=== PATIENT | male | born 1960 | race Caucasian/White ===

== ENCOUNTER 2017-04-30 14:33 | Inpatient (IN) | payer OTHER ==
[~2017-04-30] VITALS: Ht 165.1 cm; Wt 91.2 kg
--- NOTE | ~2017-04-30 | WRIGHTHP ---
[place], [place] PATIENT HISTORY AND PHYSICAL EXAM NAME: [facility]ABA [id number] UN[facility] #: [id number] ROOM: 316 DOCTOR: JADE BETANCOURT MD BIRTHDATE: [birth year] DOS: 05/01/2017 CHIEF COMPLAINT: "Get out of here. I don't need to talk to you." HISTORY OF PRESENT ILLNESS: This is a 56-year-old white male who is known to me from his stay at [facility] in [place], [place]. The patient has a lengthy history of schizo-affective disorder and most recently had been stabilized on Aristada 882 mg every 42 days. However, over the last 6 months if not slightly longer, the patient has been noncompliant and his guardian has not allowed the alf to force medications. Over this period of time, he has become increasingly more delusional and paranoid. He has been barricading his door. He has not been allowing staff to come in. He has drawn a line on the floor where he states if anyone passes that line, he will inflict bodily harm on them. He has become verbally and physically aggressive, not only toward staff, but also to other residents. He has refused to eat any of the food that is cooked at the facility instead he will go out and bring food in and only eat prepackaged food or other foods because he is grossly psychotic and feels that the facility is poisoning his foods. His behavior has become so erratic and he has put both himself and others at risk for harm that he was admitted now to rule out organic factors and to attempt to re-stabilize on medication. PAST MEDICAL HISTORY: It is remarkable for diabetes, hypertension, GERD, obesity, peripheral vascular disease and hypothyroidism. MENTAL STATUS: He is alert and oriented. He is uncooperative and very belligerent. He initially did not want to talk to me, but as I persisted, he did engage in conversation with me. He flat-out refuses to take medications, stating he has no problems. He is rather grandiose at times and paranoid. There was no agitation directed towards me; however, there were no symptoms of depression noted. I was not able to engage him enough to have him cooperate with me to be able to ascertain his level of orientation, but he does appear to be alert and oriented x 3. DIAGNOSIS: Schizo-affective disorder. PLAN: At this point in time, because he is noncompliant with medication, I will force Haldol 5 mg in the morning and 10 mg at night. We will give him the option to take it orally. If he refuses, we will ask the guardian's permission to give him an intramuscular injection. After he tolerates the Haldol well, I will plan on Haldol Decanoate injection of 200 mg on 05/03/2017. We will engage him in individual and yates milieu the best we can, attempt to form a therapeutic alliance with him and then plan to discharge back to [facility] when psychiatrically stable. [place], [place] PATIENT HISTORY AND PHYSICAL EXAM NAME: CHARLA RUVALCABA UNIT #: [id number] ROOM: [facility] DOCTOR: JADE BETANCOURT MD BIRTHDATE: [birth year] JADE BETANCOURT MD CM:HISPHYS:PATIENT HISTORY AND PHYSICAL EXAMINATION 4 5 JADE BETANCOURT MD 05/01/17935 interface
--- NOTE | ~2017-04-30 | DS ---
[place], [place] DISCHARGE SUMMARY [id number] #: [id number] ROOM: 316 DOCTOR: ANN BROWN BIRTHDATE: [birth year] DOS: 05/02/2017 CHIEF COMPLAINT: "I have pain in both of my legs." HISTORY OF PRESENT ILLNESS: He is a 56-year-old male, who is a resident of [facility] in [place]. He has a history of schizoaffective disorder and the most recent medication that he was on was Aristada, which he was getting every 42 days. He has been noncompliant. He does have a court appointed guardian and his guardian was not allowing the halfway to give him his medications if he refuse. He became increasingly more delusional and paranoid without his medications. He was barricading his door at the facility, not allowing staff to come in. He had drawn a line on the floor and stated that if anyone crossed over the line that he would physically harm them. He was verbally and physically aggressive at the halfway towards both staff and other residents. He was not eating at the facility, was going out and bringing in food to the facility because he was paranoid and believed that people were poisoning his food. His behavior became more and more erratic and so he was sent into the hospital and admitted to the Behavioral Health Unit in order to rule out organic factors and attempt to adjust his medications and get him restabilized. PAST MEDICAL HISTORY: Significant for diabetes, hypertension, GERD, obesity, peripheral vascular disease and hypothyroidism. SUMMARY OF THE HOSPITAL COURSE: On admission, his medication was changed from Aristada to Haldol. He was started on Haldol 5 mg in the morning and 10 mg at night. The goal was to get him to the point where we could give him a long-acting decanoate preparation in order to improve his compliance with his medications. He did come in with some open areas on his bilateral lower extremities. He had ultrasound today and MRI, which showed that he had some nonocclusive DVT going on, as well as some cellulitis and he was transferred to the medical floor to get that medical condition stabilized. His urinalysis was also positive for UTI. Wound C and S was pending at the time that he was transferred to medical. He was tolerating the Haldol well and the first decanoate is due tomorrow, so we will hopefully continue those while he is on the floor. MENTAL STATUS AT DISCHARGE: He is alert, orientated, a little fixated on medical issues, but that is understandable, still complaining of bilateral leg pain and so those medical issues will be handled and then he can be transferred back to the Behavioral Health Unit if it is needed prior to returning to [facility] in [place]. He had originally been refusing to have an MRI or an ultrasound. He did consent to that this morning and those tests were done. DISPOSITION: He was transferred to the fourth floor, where they will help to stabilize him his medical conditions and if necessary, we will consider readmitting him to the Behavioral Health Unit if needed, also consult on the floor if that is needed. [place], [place] DISCHARGE SUMMARY NAME: CHARLA RUVALCABA UNIT #: [id number] ROOM: [facility] DOCTOR: ANN BROWN BIRTHDATE: [birth year] Ann Brown NP CM:DISCHARG [id number] ANN BROWN 05/03/17 0044 interface
--- NOTE | ~2017-04-30 | CON ---
[place], [place] REPORT OF CONSULTATION NAME: CHARLA RUVALCABA UNIT #: [id number] ROOM: 316 DOCTOR: TANIYA KU PRIYA BIRTHDATE: [birth year] DOS: 05/01/2017 HISTORY OF PRESENT ILLNESS: This is a 56-year-old male who stays states at [facility] in [place], [place]. He was admitted for noncompliance of his medications and has been admitted to the Behavioral Health Unit at [facility]. Podiatry was consulted to evaluate his lower extremities. He has a chronic nonhealing ulcer that is being treated at [facility] for quite some time. He does not know how long the ulcer has been there. He states he has dressing changes 3 times a week. He has been taking Bactrim DS for the past 2 weeks for his wound. He denies calf pain, chest pain, nausea, vomiting, fever or chills. He denies any pain to the left lower extremity. He has been receiving compression therapy for his lower extremities for quite some time. He has trouble with ambulation. PAST MEDICAL HISTORY: Diabetes, hypertension, GERD, obesity, peripheral vascular disease, hyperthyroidism and DVTs. PAST SURGICAL HISTORY: Denies. SOCIAL HISTORY: Denies alcohol use. Illicit drug user. Denies tobacco use. ALLERGIES: ACETAMINOPHEN AND INSULIN. MEDICATIONS: Please see MAR for current list of medications. REVIEW OF SYSTEMS: GENERAL: Denies fevers, chills, nausea, vomiting. Alert and oriented, in no acute distress. HEENT: Denies vision changes, denies hearing loss, nasal discharge, throat swelling, dysphagia. CARDIOVASCULAR: Denies chest pain or heart palpitations. RESPIRATORY: Denies shortness of breath, cough, wheezing. ABDOMINAL: Denies abdominal pain, nausea, vomiting. GENITOURINARY: Denies dysuria or hematuria. NEUROLOGICAL: Has decreased sensation to bilateral lower extremities. PSYCHIATRIC: Denies depression and anxiety. ENDOCRINE: Admits to diabetes. SKIN: Admits to nonhealing lower extremity wound to the left lower extremity. PHYSICAL EXAMINATION: VITAL SIGNS: Temperature 97.4, pulse 80, blood pressure 126/58, respiratory rate 16. FOCUSED PODIATRIC LOWER EXTREMITY EXAMINATION: VASCULAR: DP pulses are palpable bilateral. PT pulses are nonpalpable secondary to extensive edema noted in bilateral lower extremities. CFT is less than 3 seconds to digits 1 through 5 bilateral. No hair is present to bilateral lower extremities. There are chronic venous stasis changes noted to bilateral lower extremities. NEUROLOGIC: Protective sensation is decreased to bilateral lower extremities. [place], [place] REPORT OF CONSULTATION NAME: CHARLA RUVALCABA UNIT #: [id number] ROOM: 316 DOCTOR: TANIYA KU PRIYA BIRTHDATE: [birth year] Decreased sensation noted with [place] monofilament to bilateral lower extremities. There is decreased muscle tone and symmetry noted to bilateral lower extremities. MUSCULOSKELETAL: 4/5 muscle strength noted at bilateral lower extremities. There is decreased range of motion of the ankle joint, subtalar joint and first MTPJ. There is equinus deformity noted bilateral lower extremities. Homans sign is negative. DERMATOLOGIC: There is an 8 x 6 x 0.2 cm wound noted on the posterior aspect of the left lower extremity. There are multiple stable eschars noted to his right and left lower extremities as well. The wound is full thickness down to fascia. It is 50% fibrotic and 50% granular. It does not track or undermine. There is a mild fruity odor noted to the wound. There is no purulent drainage noted. Serous drainage is noted to the bandages. No acute signs of infection noted at this time. LABORATORY DATA: White count 7.7, hemoglobin 12.7, hematocrit 39.6, platelets 415. ASSESSMENT: 1. Full thickness ulceration to the posterior aspect of the left lower extremity with localized cellulitis. 2. Venous insufficiency, bilateral lower extremities. 3. Stasis dermatitis, bilateral lower extremities. 4. Diabetes mellitus with peripheral neuropathy. 5. Diabetes with atherosclerotic changes. PLAN: 1. The patient is seen and examined. 2. Sharp excisional debridement down to fascia was performed with a #11 blade down to healthy bleeding tissue. 3. Wound cultures are obtained. 4. The patient is currently on doxycycline. We will continue that until wound cultures are completed. 5. Ordered arterial and venous studies to rule out DVT and evaluate appropriate blood flow to help heal the wound. 6. Ordered MRI to rule out osteomyelitis of the left lower extremity. 7. Ordered a wound VAC to be applied to the posterior aspect of the left lower extremity to hatchery helper in granulation tissue. 8. We will continue to follow on the floor. 9. Discussed with Dr. Higginbotham, who agrees with above assessment and plan. Thank you for the consultation. Please feel free to call me at my cell phone, which is [phone] for any questions. [place], [place] REPORT OF CONSULTATION NAME: HCARLA RUVALCABA UNIT #: [id number] ROOM: [facility] DOCTOR: TANIYA KU PRIYA BIRTHDATE: [birth year] MOI KU DPM CM:CONSTR:REPORT OF CONSULTATION 05/03/17 0817 interface
[~2017-04-30 14:33] MED LIST: BACTRIM 400-801 EACH PO
[2017-04-30] MEDS ORDERED: DULCOLAX10 M1 R (14:40)
[2017-04-30] MEDS ORDERED: FLEET ENEMA EX230 M1 R (14:42)
[2017-04-30] MEDS ORDERED: MILK OF MA400 MG/5 M PO (14:42)
[2017-04-30] MEDS ORDERED: TUMS300 MG PO (14:44)
[2017-04-30] MEDS ORDERED: ADVIL200 M1 PO (14:46)
[2017-04-30] MEDS ORDERED: ASPIR LOW81 MG PO (14:50)
[2017-04-30] MEDS ORDERED: CEPACOL SORE T1 EAC1 MM (14:51)
[2017-04-30] MEDS ORDERED: BENADRYL ALLERG25 M5 PO (14:51)
[2017-04-30] MEDS ORDERED: FEROSUL325 MG PO (14:52)
[2017-04-30] MEDS ORDERED: FLONASE ALLERG9.9 ML NAS (14:53)
[2017-04-30] MEDS ORDERED: GLUCAGON EMERGEN1 M1 IJ (14:54)
[2017-04-30] MEDS ORDERED: IMODIUM A-D2 M2 PO (14:56)
[2017-04-30] MEDS ORDERED: HALLS7.6 MG MM (14:56)
[2017-04-30] MEDS ORDERED: LASIX40 MG PO ×2 (14:58→15:47)
[2017-04-30] MEDS ORDERED: MAALOX MAXIMUM355 ML PO (14:59)
[2017-04-30] MEDS ORDERED: ADULTS 50+ MUL1 EACH PO (15:01)
[2017-04-30] MEDS ORDERED: OMEPRAZOLE D/R20 MG PO (15:02)
[2017-04-30] MEDS ORDERED: Synthroid,Levo50 MCG PO (15:03)
[2017-04-30] MEDS ORDERED: TRAMADOL HCL50 MG PO (15:04)
[2017-04-30 18:20] VITALS: BP 154/63
[2017-04-30 18:33] VITALS: BP 154/63
[2017-04-30] MEDS ORDERED: LANTUS SOL100 UNIT/1 SQ (19:26)
[2017-04-30] MEDS ORDERED: NOVOLOG10 ML SQ (19:27)
--- NOTE | 2017-04-30 19:30 | NUR ---
CHARLA RUVALCABA a 56 year old M admitted via wheel chair from the ADMITTING as a voluntary admission BY LEGAL GUARDIAN. Arrived on unit at 181. ALLERGIES: TYLENOL, HUMULIN R. Vital signs are: [phone]/63. The client signed the following forms with stated understanding: Authorization For The Release of Medical Information, Clothing List, Consent to Voluntary BY LEGAL GUARDIAN Admission and Hospitalization, Consent and Release Forms/Receipt of Rights, Acknowledgement of Advance Directive Information, Behavioral Health Consent Form, and Informed Consent of Medications. Admitted under the services of Dr. SERAFIN REYNOSO,[facility]. A search was conducted and hazardous articles were removed. Client was oriented to the unit. NESHA ARAMBULA
--- NOTE | 2017-04-30 19:33 | NUR ---
DR. BANSAL NOTIFIED OF NEW ADMISSION, MEDICATION AND HEALTH HISTORY IN COMPUTER FOR REVEIW.
[2017-04-30 20:00] VITALS: BP 137/52
--- NOTE | 2017-04-30 20:45 | NUR ---
PATIENT REFUSED TO LET THIS NURSE ASSESS AND PHOTOGRAPH WOUNDS TO BILATERAL LOWER EXTREMITIES. PATIENT REQUESTED THAT HOSPITAL WOUND CARE LOOK AT HIS LEGS T[place]OW. PATIENT DID NOT WANT TO HAVE EXTRA DRESSING CHANGES AT THIS TIME. THIS NURSE PUT IN ORDER TO CONSULT WOUND CARE AND ATTEMPTED TO CALL WOUND CARE AND REACH DR. JACY GLASER. MESSAGE LEFT TO CALL UNIT REGARDING PATIENTS WOUNDS
--- NOTE | 2017-04-30 20:47 | NUR ---
NURSING APRON OPERATOR AWARE OF WOUNDS AND AWARE THAT THIS NURSE UNABLE TO OBTAIN PHOTOGRAPHS AND ORDER PUT IN FOR WOUND CONSULT
--- NOTE | 2017-04-30 22:06 | NUR ---
PATIENT REFUSED RISPERDAL 1MG PO AT HS. PATIENT STATING HE IS NOT TAKING ANY MEDICATIONS THAT HE NORMALLY DOES NOT TAKE
--- NOTE | 2017-04-30 22:25 | NUR ---
PATIENT UPSET AND REQUEST BLOOD SUGAR TO BE CHECKED. PATIENT STATED I DID NOT EAT LUNCH OR BREAKFAST, BUT I HAD MY SNACK. PATIENT ALSO TOLD THIS NURSE THAT HIS BLOOD SUGAR RAN HIGH AT TIMES. THIS NURSE CHECKED PATIENT'S BLOOD SUGAR WITH RESULTS OF 414. THIS NURSE TOLD PATIENT THAT THE DOCTOR WOULD BE CALLED. PATIENT STATED ALRIGHT, BUT I DON'T LIKE TAKING THINGS DIFFERENTLY THAN I ALREADY TAKE. THIS NURSE EXPLAINED TO PATIENT THAT HE WILL BE ABLE TO SEE WOUND CARE IN THE MORNING, A DOCTOR FROM THE HOSPITAL WILL BE TO SEE HIM TONIGHT, AND THAT DR. BETANCOURT WILL ALSO BE ABLE TO SEE HIM IN THE MORNING. PATIENT VERY UPSET AND STATED THAT "IF THAT IS THE DR. BETANCOURT THAT CAME TO SEE ME AT [facility] THEN I DON'T WANT TO SEE HIM OR ANY OF HIS COLLEAUGES". PATIENT THEN STATED THAT IT HAD NOTHING TO DO WITH ANY OF HIS COLLEAGES BEING BLACK, BUT IF I AM HAVING A CONVERSATION WITH GOD THEN I SHOULD BE ALBLE TO. THAT DR. BETANCOURT HAD NO RIGHT TO SAY I COULD NOT TALK TO GOD. IF THAT IS THE SAME DR. BETANCOURT, I DO NOT WANT HIM AND I NEED ANOTHER DOCTOR
--- NOTE | 2017-04-30 22:35 | NUR ---
DR. OREILLY UPDATED ABOUT PATIENT'S BLOOD SUGAR RESULT OF 414. DR. OREILLY AWARE THAT PATIENT RECEIVES NOVOLOG 10 UNITS TID AND LANTUS [address] OREILLY WITH ORDER TO GIVE NOVOLOG 10 UNITS X 1 FOR DOSE THAT WAS NOT RECEIVED WITH DINNER. DR. OREILLY WITH ORDER TO PUT PATIENT UNDER DR. TEMPLE AT THIS TIME
--- NOTE | 2017-04-30 22:45 | NUR ---
NOVOLOG 10 UNITS SUBCUTANEOUS INJECTION GIVEN IN PATIENTS RIGHT OUTER THIGH PER PATIENT REQUEST
--- NOTE | 2017-05-01 03:23 | NUR ---
24 HR chart check completed.
--- NOTE | 2017-05-01 05:02 | NUR ---
THIS NURSE WENT IN TO CHECK ON PATIENT. PATIENT WAS SITTING IN CHAIR IN FRONT OF DOOR. PATIENT STATED HE WAS JUST GETTING DRESSED. THIS NURSE RECHECKED HIS BLOOD SUGAR WITH RESULTS OF 263. PATIENT UNABLE TO PROVIDE URINE SAMPLE AT THIS TIME AND WILL LET NURSING STAFF WHEN HE HAS TO GO TO SEND URINE SPECIMEN. PATIENT PROVIDED BLANKETS DUE TO COMPLAINT OF BEING COLD.
--- NOTE | 2017-05-01 05:43 | NUR ---
B: PARANOIA I: THERAPEUTIC COMMUNICATION, 1:1 R: I AM NOT TAKING ANY MEDICATIONS THAT I AM NOT USED TO TAKING. THEY ARE NOT GOING TO JUST GIVE ME MEDICATIONS I DON'T NEED JUST BECAUSE THEY THINK I NEED IT. P: MEDICATION COMPLIANCE, PARTICIPATE IN GROUP, IDENTIFY COPING SKILLS RELATED TO PARANOIA
--- NOTE | 2017-05-01 06:04 | NUR ---
Q 15 MINUTE CHECKS MAINTAINED. PATIENT SLEPT > 6 HOURS THROUGHOUT SHIFT
[2017-05-01 07:26] LABS: BASO # 0.1 10*3/uL (0.0-0.1); BASO % 0.9 % (0.0-1.0); EOS # 0.5 10*3/uL (0.0-0.4); EOS % 6.5 % (1.0-4.0); HEMATOCRIT 39.6 % (42.0-52.0); HEMOGLOBIN 12.7 g/dl (14.0-18.0); LYMPH # 1.3 10*3/uL (1.3-4.4); LYMPH % 16.7 % (27.0-41.0); MEAN CELL VOLUME 86.1 fl (80.0-94.0); MEAN CORPUSCULAR HGB 27.6 pg (27.0-31.0); MEAN CORPUSCULAR HGB CONC 32.1 g/dl (33.0-37.0); MEAN PLATELET VOLUME 12.1 fl (9.6-12.3); MONO # 0.9 10*3/uL (0.1-1.0); MONO % 12.2 % (3.0-9.0); NEUT # 4.8 10*3/uL (2.3-7.9); NEUT % 62.5 % (47.0-73.0); PLATELET COUNT AUTOMATED 415 10*3/uL (130-400); RED CELL DISTRI WIDTH 14.6 % (0-14.5); WHITE BLOOD COUNT 7.7 10*3/uL (4.8-10.8)
[2017-05-01 07:59] LABS: ALBUMIN 3.2 gm/dl (3.1-4.5); BUN 15 mg/dl (7-24); CHLORIDE 100 mmol/L (98-107); CHOLESTEROL 166 mg/dL (<200); POTASSIUM 4.2 mmol/L (3.5-5.1); SODIUM 134 mmol/L (136-145)
--- NOTE | 2017-05-01 08:00 | NUR ---
DR. OREILLY HERE TO SEE PT AT THIS TIME. 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 MADE AWARE PT REQUESTS ASPIRIN TO BE CHANGED FROM 81MG TO 325MG DAILY. DR. OREILLY STATES OKAY TO CHANGE ASPIRIN. PT REFUSED BREAKFAST AND AM INSULIN, DR. OREILLY AWARE, PT ONLY REQUESTS COFFEE. URINE SAMPLE OBTAINED AT THIS TIME FOR UA VIA CLEAN CATCH.
[2017-05-01 08:11] LABS: ALKALINE PHOSPHATASE 97 U/L (45-117); CREATININE 1.45 mg/dL (0.70-1.30); HDL CHOLESTEROL 40 mg/dl (40-60); LDL CHOLESTEROL 108 mg/dL (9-159); SGOT/AST 10 IU/L (3-35); SGPT/ALT 12 U/L (12-78); TOTAL PROTEIN 8.5 gm/dL (6.4-8.2); TRIGLYCERIDES 90 mg/dl (<150); VLDL CHOLESTEROL 18 mg/dL (6-40)
[2017-05-01 08:23] LABS: VITAMIN D, 25-HYDROXY 25.4 ng/mL (30-100)
[2017-05-01 08:38] VITALS: BP 139/65
[2017-05-01 09:05] LABS: BILIRUBIN NEGATIVE (NEGATIVE); BLOOD 2+ (NEGATIVE); CLARITY SL CLOUDY (CLEAR); COLOR YELLOW (YELLOW); GLUCOSE 3+ (NEGATIVE); KETONE NEGATIVE (NEGATIVE); LEUKO ESTERASE 3+ (NEGATIVE); NITRITE POSITIVE (NEGATIVE); PH 5.5 (5.0-9.0); SPECIFIC GRAVITY <= 1.005 (1.005-1.030); UROBILINOGEN 0.2 E.U./dl (0.2-1.0)
--- NOTE | 2017-05-01 09:05 | NUR ---
CALLED RE:WOUND CARE CONSULT FOR THIS PT. STATED "I DO NOT WANT TO SEE THIS PT B/C TOMORROW IS MY LAST DAY AT THIS HOSPITAL AND I DO NOT WANT TO SEE A PT THAT I CANNOT FOLLOW UP ON, PLEASE HAVE CANCEL THE ORDER FOR MY CONSULT AND HAVE PODITRY SEE THIS PT." NO FURTHER ORDERS AT THIS TIME.
--- NOTE | 2017-05-01 09:09 | NUR ---
DR. BEDOYA'S OFFICE NOTIFIED OF WOUND CONSULT NEEDED.
--- NOTE | 2017-05-01 09:21 | NUR ---
FALL AND SAFETY PRECAUTIONS REVIEWED WITH PT. PT SITTING IN CHAIR IN ROOM WITH WALKER NEXT TO PT. PORTABLE CALL RODRIGUEZ PROVIDED TO PT, ENCOURAGED TO USE RODRIGUEZ FOR ASSISTANCE OUT OF CHAIR AND TO/FROM BATHROOM. PT VERBALIZED UNDERSTANDING.
[2017-05-01 09:29] LABS: BACTERIA 3+; RBC 21-30 rbc/hpf (0-2); WBC TNTC wbc/hpf (0-5)
--- NOTE | 2017-05-01 11:28 | NUR ---
Reminiscing/Feelings Patient did not attend group this morning. Patient was encouraged to join but patient nicolasasherly refused,stating the only group he would join is a BINGO group. AT offered to come back at some point and 1:1 with patient playing cards or just talking. Patient stated again only BINGO.
--- NOTE | 2017-05-01 11:35 | NUR ---
CALL PLACED TO COMMUNICATIONS CONTROLLER HILL'S OFFICE TO SPEAK TO GUARDIAN IN REGARD TO MEDICATIONS PER THE REQUEST OF DR. BETANCOURT, NO ANSWER, MESSAGE LEFT REQUESTING COMMUNICATIONS CONTROLLERBYRON COX RETURN CALL TO THE UNIT.
--- NOTE | 2017-05-01 12:13 | NUR ---
DR. ROLON ON UNIT AT THIS TIME, ASSESSED PT, MADE AWARE OF ABNORMAL LABS AND ABNORMAL URINALYSIS RESULT.
--- NOTE | 2017-05-01 16:24 | NUR ---
CALL PLACED BY MARCIA CRISTOBAL TO DIRECTOR MARKETING ANALYTICSBYRON COX'S HOME PHONE, ATTEMPTING TO REACH GUARDIAN IN REGARD TO MEDICATIONS PER THE REQUEST OF DR. BETANCOURT, MESSAGE LEFT REQUESTING DIRECTOR MARKETING ANALYTICSBYRON COX RETURN CALL TO THE UNIT.
--- NOTE | 2017-05-01 17:14 | NUR ---
PT IS ALERT AND ORIENTED TO PERSON, PLACE, TIME AND SITUATION. MEMORY APPEARS INTACT. RESPIRATIONS EASY ON ROOM AIR. MOOD IS LABILE, AFFECT IS FLAT. SPEECH IS WNL AND COHERENT. ABLE TO MAKE NEEDS KNOWN WITHOUT DIFFICULTY. PT DENIES HALLUCINATIONS, NO RESPONSE TO INTERNAL STIMULI NOTED. PT DENIES SI/HI. MEDICATION COMPLIANT THIS SHIFT WITHOUT DIFFICULTY. EDUCATED THIS AM REGARDING HALDOL, PT TOOK PO HALDOL WILLINGLY. PT IS AMBULATORY WITH WHEELED WALKER, GIVEN PORTABLE CALL RODRIGUEZ TO ASK FOR ASSISTANCE NEEDED, PT VERBALIZED UNDERSTANDING. PT STARTED ON DOXYCYCLINE PO FOR UTI, PT EDUCATED ON MEDICATION WITH PT'S VERBALIZED UNDERSTANDING. CONTACT ISOLATION MAINTAINED DUE TO RECENT HX OF +MRSA TO RLE WOUND. PT HAS NOT ALLOWED THIS NURSE TO TOUCH LEG WOUNDS THIS SHIFT OR UNWRAP LEGS PT STATES "I WANT THE WOUND DOCTOR TO SEE IT FIRST." THIS NURSE AWAITING LCAC RADAR OPERATOR/NAVIGATOR TO COME AND ASSESS WOUNDS, CALL WAS RECIEVED THIS DATE FROM DR. BEDOYA'S OFFICE STATING THEY WILL BE HERE 'THIS EVENING.' PT AWARE. PT EASILY AGITATED AT DINNER TIME DUE TO SALT AND PEPPER PACKETS BEING ON TRAY STATES "IF THESE PEOPLE CAN'T LEARN TO LISTEN TO ME, I'LL JUST THROW THIS STUFF ON THE FLOOR. I'M NOT DOING THIS TOMORROW." PT SITTING IN ROOM EATING DINNER AT THIS TIME, NO DISTRESS NOTED. Q15 MIN SAFETY CHECKS MAINTAINED, REFER TO [facility] FLOWSHEET FOR SPECIFIC MONITORING.
--- NOTE | 2017-05-01 17:36 | NUR ---
SHIFT CHART CHECK COMPLETED.
[2017-05-01 20:01] VITALS: BP 126/58
--- NOTE | 2017-05-02 06:53 | NUR ---
24 HR chart check completed.
--- NOTE | 2017-05-02 07:59 | NUR ---
Feelings:Dealing with negative feelings. Patient did not attend group due to isolation. AT talked to patient about his interest, offering to discuss group with patient in room. Patient stated hes only interested in BINGO. AT questioned patient on other interest such as reading,puzzles,etc.. Patient stated he likes word searches but refuses sheets of them will only accept books of those puzzles. Explained to patient we only have sheets and to let staff know if he changes his mind. Patient demanding,complaining staff are too slow taking care of his needs. Also complains of not having items he wants such as a mirror for his room. Patient educated on policies on this floor then redirected to his interest. Patient then stated whe would take sheets of word search but wants no other interaction with an activity
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
[2017-05-02 09:15] VITALS: BP 126/66
--- NOTE | 2017-05-02 11:27 | NUR ---
RECIEVED CALL FROM [facility] IN [place] STATING WITHOUT FURTHER INFORMATION REGARDING TYPE OF STENT PLACED IN PT'S LEG THEY WOULD BE UNABLE TO PERFORM MRI. PT UNABLE TO RECALL WHICH DOCTOR PLACED FILTER BUT STATES IT WAS DONE AT [facility] IN 2009. CALL PLACED TO [facility], OPERATIVE REPORT OBTAINED FROM PLACEMENT OF IVC FILTER DONE ON 10/06/2009. REPORT FAXED TO [facility] IN [place] FOR REVIEW. RECIEVED CALL FROM MRI WHO STATES AFTER REVIEWING THE TYPE OF IVC FILTER PLACED PT IS SAFE FOR MRI AND STATES THEY WILL SEND ESCORT FOR PT SHORTLY.
--- NOTE | 2017-05-02 12:30 | NUR ---
Was up on floor to see patient and patient was off the floor getting testing. This nurse instructed the nurse caring for patient that wound care orders need clarified with podiatry after the tests results came back. This nurse also informed the nursing staff that photographs need taken of the wound since there was only on photographed area last night.
--- NOTE | 2017-05-02 13:03 | NUR ---
Reminiscing Patient did not attend group this morning due to being in isolation. Patient wants no 1:1. Patient finished all word searches from yesterday so AT gave him more to do
--- NOTE | 2017-05-02 13:10 | NUR ---
PT RETURNED FROM MRI WITHOUT INCIDENT.
--- NOTE | 2017-05-02 13:40 | NUR ---
RECIEVED CALL FROM JOHN RAIN CNP STATING PT IS TO BE DISCHARGED FROM [facility] AND ADMITTED TO MEDICAL FLOOR UNDER THE SERVICES OF DR. BISWAS WITH DX CELLULITIS AND UNCONTROLLED DIABETES. NURSING EXTERNAL GRINDER MADE AWARE, PT WILL GO TO PRIVATE ROOM 428. CALL PLACED TO DR. BETANCOURT TO MAKE AWARE. CALL PLACED TO LEGAL GUARDIAN TYPECASTING MACHINE OPERATOR KENNY TO MAKE AWARE, NO ANSWER, MESSAGE LEFT FOR TYPECASTING MACHINE OPERATOR KENNY TO PLEASE RETURN CALL TO THE UNIT. PT MADE AWARE OF TRANSFER AND VERBALIZED UNDERSTANDING.
--- NOTE | 2017-05-02 14:05 | NUR ---
CALL PLACED TO 4TH FLOOR TO GIVE NURSE TO NURSE REPORT, STATED NO NURSE HAS BEEN ASSIGNED YET, WILL CALL BACK FOR REPORT ONCE ASSIGNMENT IS MADE.
--- NOTE | 2017-05-02 14:27 | NUR ---
CALL PLACED TO JOHN RAIN CNP DUE TO DISCHARGE MEDS NOT COMPLETED, MEDS REVIEWED AND COMPLETED VIA TELEPHONE WITH ALEX COCHRAN AT THIS TIME.
[2017-05-02] MEDS ORDERED: HALDOL5 MG PO ×2 (14:32→14:33)
[2017-05-02] MEDS ORDERED: HALDOL5 MG/1 ML IM ×3 (14:33→14:36)
[2017-05-02] MEDS ORDERED: HALDOL DEC100 MG/1 M IM (14:35)
[2017-05-02] MEDS ORDERED: ATIVAN1 MG PO (14:37)
[2017-05-02] MEDS ORDERED: ATIVAN IM (14:37)
[2017-05-02] MEDS ORDERED: GEODON20 M1 IM (14:38)
[2017-05-02] MEDS ORDERED: DOXYCYCLINE100 M3 PO (14:39)
--- NOTE | 2017-05-02 14:40 | NUR ---
DISCHARGE MED REC UPDATED WITH PSYCHIATRIC MEDICATIONS PER DR. BETANCOURT. WITNESSED BY 2ND RN TOM.
--- NOTE | 2017-05-02 14:56 | NUR ---
SW completed psychosocial assessment. Pt is going to the medical floor for treatment of celluitis. SW completed Discharge paperwok and will fax to guardian for signature.
--- NOTE | 2017-05-02 15:00 | NUR ---
RECIEVED RETURN CALL BACK FROM LEGAL GUARDIAN CLERICAL WAREHOUSEMAN KENNY'S OFFICE, MADE AWARE OF DISCHARGE TO MEDICAL FLOOR.
--- NOTE | 2017-05-02 15:03 | NUR ---
DISCHARGE WOUND PHOTOS TAKEN AT THIS TIME
--- NOTE | 2017-05-02 15:11 | NUR ---
NURSE TO NURSE REPORT GIVEN TO YASSINE ON 4TH FLOOR.
--- NOTE | 2017-05-02 15:18 | NUR ---
PT DISCHARGED FROM [facility] TO [facility] 4TH FLOOR ROOM 420 AT THIS TIME VIA WHEELCHAIR ESCORT BY THIS NURSE AND MACARENA BRICEÑO. ALL PERSONAL BELONGINGS WERE SENT WITH THE PT. DISCHARGE INSTRUCTIONS PROVIDED TO YASSINE NURSE ON 4TH FLOOR AND WILL BE SENT TO LEGAL GUARDIAN. PT LEFT THE UNIT IN STABLE CONDITION.
--- NOTE | 2017-05-02 16:22 | NUR ---
Customer Support Technician Note: faxed 30 pages for signatures to Rhonda Palmer.
--- NOTE | 2017-05-02 17:17 | NUR ---
RUPERT PACHECO NOTIFIED SW THAT SIGNATURE PAGES WERE RECEIVED FROM GUARDIAN.
[2017-05-02] MEDS ORDERED: NOVOLOG10 ML IV (17:59)
== END 2017-05-02 13:52 | disposition short-term general hospital (02) | DRG 885 ==
LOC: 3N 14:33
PROVIDERS: ADMIT Psychiatry & Neurology Psychiatry
DX: F25.9 Schizoaffective disorder, unspecified (principal); E11.51 Type 2 diabetes mellitus with diabetic peripheral angiopathy without gangrene; I82.411 Acute embolism and thrombosis of right femoral vein; E11.65 Type 2 diabetes mellitus with hyperglycemia; L03.90 Cellulitis, unspecified; N39.0 Urinary tract infection, site not specified; K21.9 Gastro-esophageal reflux disease without esophagitis; I10 Essential (primary) hypertension; E03.9 Hypothyroidism, unspecified; I87.8 Other specified disorders of veins; E66.09 Other obesity due to excess calories; R82.71 Bacteriuria; Z88.8 Allergy status to other drugs, medicaments and biological substances; Z88.6 Allergy status to analgesic agent; Z80.7 Family history of other malignant neoplasms of lymphoid, hematopoietic and related tissues; Z79.4 Long term (current) use of insulin; Z79.899 Other long term (current) drug therapy; S91.309D Unspecified open wound, unspecified foot, subsequent encounter; Z91.14 Patient's other noncompliance with medication regimen; Z68.31 Body mass index [BMI] 31.0-31.9, adult

== ENCOUNTER 2017-05-02 13:56 | Inpatient (IN) | payer OTHER ==
[~2017-05-02] VITALS: Ht 167.6 cm; Wt 89.0 kg
--- NOTE | ~2017-05-02 | CON ---
[place], [place] REPORT OF CONSULTATION NAME: CHARLA RUVALCABA UNIT #: [id number] ROOM: 420 DOCTOR: JADE BETANCOURT MD BIRTHDATE: [birth year] DOS: 05/03/2017 CHIEF COMPLAINT: "What are you doing here?" HISTORY OF PRESENT ILLNESS: This is a 56-year-old white male known to me from his stay at [facility] a penit[facility] in [place] as well as a recent admission to the [facility] at [facility]. The patient had been stabilized on Aristada 882 mg every 42 days but over the last 6 months, has been totally noncompliant with the medication. During this period of time, his psychosis has returned and has exacerbated extremely to the point where he has barricaded himself in his room. He would not let anyone in without making threats of harm. He has raised his fist and he has pushed people. He will not eat any of the food from the facility, instead he prefers to go out, buy food and bring it in. He will not necessarily refrigerate it. He has become increasingly paranoid and aggressive. He has been noncompliant with all aspects of his care. He was initially admitted to the [facility] but upon admission there, he was found to have a DVT and a very severe wound that required transfer to a medical floor. PAST MEDICAL HISTORY: Remarkable for diabetes, hypertension, GERD, obesity, peripheral vascular disease, and hypothyroidism. MENTAL STATUS: He is alert and oriented. Mood does seem to be rather labile. He is still paranoid and delusional. Memory seems intact. DIAGNOSIS: Schizoaffective disorder. PLAN: I will restart his Haldol 5 mg in the morning and 10 mg at night. He is to be loaded with Haldol decanoate 200 mg IM today. I will hold off on ordering a monthly Haldol shot as he may require an additional 100 mg booster bringing him to a total of 300 mg IM every month. We will support and monitor. Given the severity of his mental health issues, once he is medically stable, I would be happy to take him back to the [facility] for further psychiatric stabilization. JADE BETANCOURT MD CM:CONSTR:REPORT OF CONSULTATION 0851 05/03/17 1304 interface
--- NOTE | ~2017-05-02 | PR ---
[place], [place] PROGRESS NOTE NAME: [id number] UN[facility] #: [id number] ROOM: 420 DOCTOR: DARLINE BEDOYA DPM BIRTHDATE: [birth year] DOS: 05/04/2017 SUBJECTIVE: The patient was seen for followup of ulceration, posterior left calf and ulceration anterior right lower leg, anterior aspect. OBJECTIVE: Venous insufficiency, bilateral lower leg noted. Ulceration posterior left calf is approximately 7.9 x 5.0 x 0.1 cm. There is no further drainage. There is no further slough or nonviable tissue. The ulceration is doing well at this time. No signs of drainage or maceration. Anterior right lower leg ulceration also improving at this time. ASSESSMENT: Venous ulceration posterior aspect of left leg. PLAN: Evaluation and management. Continue dressing changes daily both legs. We will monitor the patient again on Saturday. The patient also had a nonocclusive DVT in the right common femoral and proximal superficial femoral veins and superficial thrombophlebitis within the bilateral greater saphenous veins and the patient is currently being treated with heparin. The patient is also being treated with antibiotics for the infection. DARLINE BEDOYA DPM CM:DARIAN [id number] DARLINE BEDOYA DPM 05/04/17 1149 interface
--- NOTE | ~2017-05-02 | CON ---
[place], [place] REPORT OF CONSULTATION NAME: CHARLA RUVALCABA UNIT #: [id number] ROOM: 420 DOCTOR: JESSICA COCHRAN,NOVEMBER BIRTHDATE: [birth year] DOS: HISTORY OF PRESENT ILLNESS: The patient is a 56-year-old male who was admitted from the [facility] Unit for infection of the left lower extremity posterior calf wound. He developed foul odor as well as bilateral lower extremity swelling and erythema. He had an MRI done to evaluate for possible osteo that was negative for osteomyelitis or abscess. He also had an ultrasound which demonstrated a right lower extremity nonocclusive DVT. He was started on vancomycin and Zosyn. He was admitted to [facility] from [facility]. ID is consulted for bilateral lower extremity cellulitis. Cultures from the left leg are listed under outpatient from are growing gram-negative rods. His blood cultures are negative thus far. He denies any fevers or chills. States he has had his circulation evaluated recently at [facility]. PAST MEDICAL HISTORY: As above as well as juvenile-onset diabetes, DVT, hypertension, GERD, obesity, peripheral vascular disease, schizoaffective disease, hypothyroidism. PAST SURGICAL HISTORY: Appendectomy, wrist surgery. SOCIAL HISTORY: Nonsmoker, nondrinker, no illicit drug use. He has been in a alf for some time now. FAMILY MEDICAL HISTORY: Father healthy. Mother at the age of 56 with lymphoma. ALLERGIES: Include ACETAMINOPHEN and INSULIN. CURRENT MEDICATIONS: Include vitamin D, Haldol, Synthroid, Feosol, Levemir, Imodium, , Protonix, vancomycin and Zosyn. LABORATORY DATA: WBC 7.0, platelets 345. BUN 24, creatinine 1.44. LFTs within normal limits. REVIEW OF SYSTEMS: As above in history of present illness. He denies any pain in the lower extremities, but complains of foul odor from the left leg wound that has been worsening. Denies any fevers or chills. No nausea, vomiting or diarrhea. No rash or itch. No cough or shortness of breath. He denies neuropathy. Does have chronic lower extremity edema. Very poor dentition. Further review of systems is unremarkable. PHYSICAL EXAMINATION: VITAL SIGNS: Temperature 98.0, pulse 78, respirations 18, BP 140/58. GENERAL: A 56-year-old male in no acute distress. HEAD, EYES, EARS, NOSE AND THROAT: Normocephalic, no thrush. LUNGS: Clear to auscultation bilaterally. Respirations even and unlabored. HEART: Regular rhythm. No murmur appreciated. ABDOMEN: Soft, nontender, positive bowel sounds. EXTREMITIES: +3 to 4 edema bilateral lower extremities, right greater than left [place], [place] REPORT OF CONSULTATION NAME: CHARLA RUVALCABA UNIT #: [id number] ROOM: 420 DOCTOR: JESSICA COCHRANNOVEMBER BIRTHDATE: [birth year] with erythema and increased warmth, again right greater than left. Left posterior leg with foul smelling fairly dry wound. Skin, especially of the left leg has erythema, increased warmth and scaling. Right lower extremity shiny red, increased warmth but no tenderness. I suspect he has neuropathy in spite of his denial of it. Unable to palpate dorsalis pedis pulses. SKIN: Otherwise, warm, dry, free of rashes. ASSESSMENT: Bilateral lower extremity cellulitis and left leg infected nonhealing wound with peripheral vascular disease and diabetes. PLAN: I will continue the vancomycin and Zosyn given his long-term stays in extended care facilities. Follow up on his wound cultures and adjust the antibiotics accordingly. He has been evaluated by Dr. Singh with Podiatry. Case discussed with Dr. Kathi Del Toro. LESTER LOPEZ CNP KATHI DEL TORO MD CM:CONSTR:REPORT OF CONSULTATION 1544 05/03/172110 interface
--- NOTE | ~2017-05-02 | PR ---
[place], [place] PROGRESS NOTE NAME: [facility]ABA [id number] UNIT #: [id number] ROOM: 420 DOCTOR: DILCIA ARAMBULA DPM BIRTHDATE: [birth year] DOS: 05/06/2017 SUBJECTIVE: The patient is seen for followup of an ulceration, posterior left calf and anterior portion of the right leg. States that he thinks he is doing better. There is no other complaints at this time. OBJECTIVE: Neurovascular status is unchanged. Left posterior calf wound is much cesspool cleaner with more granular tissue, less soft tissue noted, still some mild drainage noted, but surrounding edema and erythema significantly improved. A small portion of the anterior right lower leg is improving nicely. Overall, no infection bilaterally. ASSESSMENT: Venous ulcer posterior aspect of left leg, improving. PLAN: ____ continue with daily dressing changes, continue with wound care and offloading. Overall, he appears to be improving nicely clinically. We will continue to follow while in the hospital. DILCIA ARAMBULA DPM CM:PNJOSE 1155 [id number] DILCIA ARAMBULA DPM 05/07/17 0017 interface
--- NOTE | ~2017-05-02 | PR ---
[place], [place] PROGRESS NOTE NAME: CHARLA RUVALCABA UNIT #: [id number] ROOM: 420 DOCTOR: ALVERTO REYNOSO,KATHI Small BIRTHDATE: [birth year] DOS: 05/04/2017 INFECTIOUS DISEASE I agree with the above plans as described. We will follow the patient up clinically and adjust accordingly. KATHI DEL TORO MD CM:PNTRANS 2228 KATHI DEL TORO MD 05/04/17 2315 interface
--- NOTE | ~2017-05-02 | PR ---
[place], [place] PROGRESS NOTE NAME: CHARLA RUVALCABA UNIT #: [id number] ROOM: 420 DOCTOR: JESSICA COCHRAN,NOVEMBER BIRTHDATE: [birth year] DOS: 05/04/2017 SUBJECTIVE: He is being followed for bilateral lower extremity cellulitis and left leg wound infection. His cultures have grown a fairly sensitive E. coli and Proteus. He is currently on Zosyn and vancomycin. He is alert and oriented, doing well. Denies any pain. No fevers, chills, nausea, vomiting or diarrhea. No cough or shortness of breath. PHYSICAL EXAMINATION: VITAL SIGNS: Show temperature 98.7, pulse 76, respirations 20, BP 137/57. LABORATORY DATA: Show WBC 6.3, platelets 319, BUN 20, creatinine 1.05. AST 7, ALT 10. Blood cultures are negative. PHYSICAL EXAMINATION: GENERAL: Alert and oriented 56-year-old male in no acute distress. HEAD, EYES, EARS, NOSE AND THROAT: Normocephalic, no thrush. LUNGS: Clear to auscultation bilaterally. Respirations even and unlabored. HEART: Regular rhythm. No murmur appreciated. ABDOMEN: Soft, nontender. EXTREMITIES: +2 to 3 edema bilateral lower extremities. There is a dressing, mid left lower calf. Erythema of the right leg is improving, visible erythema of the left leg is also improving. ASSESSMENT: Cellulitis, bilateral lower extremities and wound infection of the left leg. PLAN: We will consult his antibiotics to oral Keflex 500 mg p.o. q.6. hours. LESTER SAMMIE LOPEZ KATHI DEL TORO MD CM:PNTRANS 04 [id number] JESSICA COCHRAN 05/06/17 4937 interface
--- NOTE | ~2017-05-02 | CON ---
[place], [place] REPORT OF CONSULTATION NAME: CHARLA RUVALCABA UNIT #: [id number] ROOM: 420 DOCTOR: ALVERTO REYNOSO,KATHI Small BIRTHDATE: [birth year] DOS: After reviewing the labs and cultures as well as the radiographs, I agree with the above plans as described in consult on the patient from Infectious Disease on 05/03/2017. KATHI DEL TORO MD CM:CONSTR:REPORT OF CONSULTATION 1623 05/03/17 2141 interface
--- NOTE | ~2017-05-02 | PR ---
[place], [place] PROGRESS NOTE [id number] UNIT #: [id number] ROOM: 420 DOCTOR: DILCIA ARAMBULA DPM BIRTHDATE: [birth year] DOS: 05/03/2017 SUBJECTIVE: This patient is seen for followup of a large left posterior calf wound. He states he has had it for quite sometime. He came from [facility] and was admitted because of cellulitis. He states he is feeling better at this time. OBJECTIVE: Neurovascular status is unchanged. Chronic venous insufficiency is seen. There is a large wound at the left posterior calf area measuring 8.0 x 5.0 x 0.2 cm. There is some mild serous drainage. There is some slough and nonviable tissue noted within the wound. Minimal erythema. No malodor or purulent drainage is noted. No signs of abscess at this time. ASSESSMENT: Chronic left calf wound. PLAN, EVALUATION AND MANAGEMENT: I would not recommend a wound VAC at this time. I would recommend wet to dry dressing daily to try to clean the wound up. He may need further debridement of the wound. We will follow him while in the hospital. The case was discussed with his nurse and we will see him back for followup to continue to monitor the wound. DILCIA ARAMBULA DPM CM:PNJOSE 1155 DILCIA ARAMBULA DPM 05/03/17 2346 interface
--- NOTE | ~2017-05-02 | PR ---
[place], [place] PROGRESS NOTE NAME: CHARLA RUVALCABA UNIT #: [id number] ROOM: 420 DOCTOR: JESSICA COCHRANNOVEMBER BIRTHDATE: [birth year] DOS: The patient is being followed for bilateral lower extremity cellulitis and had cultures of his leg which grew Proteus and E. coli. He is now on oral Keflex which he is tolerating without issues. Denies fevers, chills, nausea, vomiting or diarrhea. Denies pain in his legs, states he gets a little burning, but otherwise doing well. WBC 6.9, platelets 314, BUN 15, creatinine 1.0. PHYSICAL EXAMINATION: VITAL SIGNS: Temp 98.4, pulse 79, respirations 20, BP 141/61. He has been afebrile. GENERAL: A 56-year-old male in no acute distress. HEAD, EYES, EARS, NOSE AND THROAT: Normocephalic. No thrush. LUNGS: Clear to auscultation bilaterally. Respirations even and unlabored. HEART: Regular rhythm. No murmur appreciated. ABDOMEN: Soft, nontender. EXTREMITIES: +2 to 3 edema, bilateral lower extremities. Erythema improving. Does have a dressing on his left posterior leg wound. ASSESSMENT: Bilateral lower extremity cellulitis and left calf wound infection. PLAN: At this point, he is doing well on oral Keflex. He would be okay for discharge from [facility]. ADDENDUM. After reviewing the chart and labs, I agree with the above plans as outlined in the progress note, dictated by Dr. Del Toro. LESTER LOPEZ CNP [place], [place] PROGRESS NOTE NAME: CHARLA RUVALCABA UNIT #: [id number] ROOM: 420 DOCTOR: JESSICA COCHRANNOVEMBER BIRTHDATE: [birth year] KATHI DEL TORO MD CM:PNTRANS 27 [phone] JESSICA COCHRAN 05/06/17 1701 interface
[~2017-05-02 13:56] MED LIST changes: +ADULTS 50+ MUL1 EACH PO; +ADVIL200 M1 PO; +ASPIR LOW81 MG PO; +BENADRYL ALLERG25 M5 PO; +CEPACOL SORE T1 EAC1 MM; +DULCOLAX10 M1 R; +FEROSUL325 MG PO; +FLEET ENEMA EX230 M1 R; +FLONASE ALLERG9.9 ML NAS; +GLUCAGON EMERGEN1 M1 IJ; +HALLS7.6 MG MM; +IMODIUM A-D2 M2 PO; +LANTUS SOL100 UNIT/1 SQ; +LASIX40 MG PO; +MAALOX MAXIMUM355 ML PO; +MILK OF MA400 MG/5 M PO; +NOVOLOG10 ML SQ; +OMEPRAZOLE D/R20 MG PO; +Synthroid,Levo50 MCG PO; +TRAMADOL HCL50 MG PO; +TUMS300 MG PO
--- NOTE | 2017-05-02 14:16 | NUR ---
PER [facility] AT [facility] STAY VENUS FOR 12 DAYS. NR 05/13/17
[2017-05-02] MEDS ORDERED: HALDOL5 MG PO ×2 (14:32→14:33)
[2017-05-02] MEDS ORDERED: HALDOL5 MG/1 ML IM ×3 (14:33→14:36)
[2017-05-02] MEDS ORDERED: HALDOL DEC100 MG/1 M IM (14:35)
[2017-05-02] MEDS ORDERED: ATIVAN1 MG PO (14:37)
[2017-05-02] MEDS ORDERED: ATIVAN IM (14:37)
[2017-05-02] MEDS ORDERED: GEODON20 M1 IM (14:38)
[2017-05-02] MEDS ORDERED: DOXYCYCLINE100 M3 PO (14:39)
--- NOTE | 2017-05-02 15:15 | NUR ---
PT HAS NOT ARRIVE ON FLOOR YET BUT [facility] CALLED TO SAY PT HAS DVT RIGHT FEMEROL VIENS. JOHN RAIN NOTIFIED.
[2017-05-02 16:00] VITALS: BP 121/60
--- NOTE | 2017-05-02 16:00 | NUR ---
A 56, admitted to , under the services of KOLBY Hernadez DO with a diagnosis of CELLULITIS. Chief complaint is SWELLING REDNESS WOUNDS TO BILATERAL LOWER LEGS. Patient arrived via wheel chair from [place]. Monitor applied. Initial assessment completed. Vital signs taken and recorded. KOLBY HERNADEZ DO notified of admission to the unit. Orders received. See assessment for past medical history, medications and allergies. Patient and/or family oriented to unit. [facility] visitation policy reviewed. Clothing/patient valuable form completed. YASSINE RAMOS
[2017-05-02 16:47] LABS: BASO # 0.1 10*3/uL (0.0-0.1); EOS # 0.2 10*3/uL (0.0-0.4); EOS % 2.1 % (1.0-4.0); HEMATOCRIT 40.1 % (42.0-52.0); HEMOGLOBIN 12.9 g/dl (14.0-18.0); LYMPH % 10.4 % (27.0-41.0); MEAN CELL VOLUME 86.8 fl (80.0-94.0); MEAN CORPUSCULAR HGB 27.9 pg (27.0-31.0); MEAN CORPUSCULAR HGB CONC 32.2 g/dl (33.0-37.0); MEAN PLATELET VOLUME 12.2 fl (9.6-12.3); MONO # 0.7 10*3/uL (0.1-1.0); MONO % 7.5 % (3.0-9.0); NEUT # 7.6 10*3/uL (2.3-7.9); NEUT % 77.9 % (47.0-73.0); NUCLEATED RED BLOOD CELL 0.2 % (0.0-0.0); PLATELET COUNT AUTOMATED 390 10*3/uL (130-400); RED BLOOD COUNT 4.62 10*6/uL (4.50-5.90); RED CELL DISTRI WIDTH 14.6 % (0-14.5); WHITE BLOOD COUNT 9.8 10*3/uL (4.8-10.8)
[2017-05-02 16:59] LABS: ACT PARTIAL THROMBO TIME 24.7 SECONDS (20.8-31.5)
[2017-05-02 17:06] LABS: ALBUMIN 3.3 gm/dl (3.1-4.5); ALKALINE PHOSPHATASE 107 U/L (45-117); CHLORIDE 95 mmol/L (98-107); CREATININE 2.26 mg/dL (0.70-1.30); POTASSIUM 4.7 mmol/L (3.5-5.1); SGOT/AST 7 IU/L (3-35); SGPT/ALT 15 U/L (12-78); SODIUM 131 mmol/L (136-145); TOTAL PROTEIN 8.7 gm/dL (6.4-8.2)
[2017-05-02 17:07] LABS: BUN 32 mg/dl (7-24); TROPONIN I < 0.015 ng/ml (<0.045)
[2017-05-02] MEDS ORDERED: NOVOLOG10 ML IV (17:59)
[2017-05-02 20:00] VITALS: BP 158/63
[2017-05-03] VITALS: BP 136/56
--- NOTE | 2017-05-03 04:59 | NUR ---
PATIENT CALLING NURSE IN TO ROOM AND WANTING IV HEPARIN AND FLUIDS TURNED OFF. SAID HE DOESN'T WANT THEM ANYMORE. I TOLD HIM HE NEEDED TO TALK TO THE DOCTOR WHEN HE COMES IN. WILL CONTINUE TO MONITOR. SITTING IN RECLINER WATCHING TV. CALL LIGHT IN REACH.
--- NOTE | 2017-05-03 05:59 | NUR ---
PATIENT REFUSED AM PROTONIX AND AM LABS TO BE DRAWN.
--- NOTE | 2017-05-03 07:50 | NUR ---
ATTEMPTED TO CALL JOHN RAIN NP REGARDING PATIENT'S SUBTHERAPEUTIC PTT YESTERDAY AND PATIENT REFUSING TO HAVE IT DRAWN THIS AM WITH NO ANSWER.
[2017-05-03 08:00] VITALS: BP 139/68
--- NOTE | 2017-05-03 08:10 | NUR ---
PAGED TO DESK FOR CALL FROM JOHN RAIN BUT WHEN THIS NURSE PICKED UP THE LINE NO ONE WAS THERE.
--- NOTE | 2017-05-03 08:12 | NUR ---
AGAIN ATTEMPTED TO CALL JOHN RAIN NP REGARDING PATIENT'S HEPARIN GTT WITH NO AMSWER.
--- NOTE | 2017-05-03 08:31 | NUR ---
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 COMES FROM [facility]. PER STAND UP MEETING YESTERDAY, WILL LIKELY GO BACK TO [facility] UPON DC FR OM MED/SURG. PER SHANON BARRON, PT CAN GO BACK WITH WOUND VAC.
[2017-05-03 08:52] LABS: BASO # 0.1 10*3/uL (0.0-0.1); BASO % 1.6 % (0.0-1.0); EOS # 0.5 10*3/uL (0.0-0.4); EOS % 7.6 % (1.0-4.0); HEMATOCRIT 35.5 % (42.0-52.0); HEMOGLOBIN 11.5 g/dl (14.0-18.0); LYMPH # 1.5 10*3/uL (1.3-4.4); LYMPH % 21.4 % (27.0-41.0); MEAN CELL VOLUME 86.4 fl (80.0-94.0); MEAN CORPUSCULAR HGB CONC 32.4 g/dl (33.0-37.0); MEAN PLATELET VOLUME 12.2 fl (9.6-12.3); MONO # 0.6 10*3/uL (0.1-1.0); NEUT # 4.2 10*3/uL (2.3-7.9); NEUT % 59.5 % (47.0-73.0); PLATELET COUNT AUTOMATED 345 10*3/uL (130-400); RED BLOOD COUNT 4.11 10*6/uL (4.50-5.90); RED CELL DISTRI WIDTH 14.6 % (0-14.5)
--- NOTE | 2017-05-03 09:26 | NUR ---
IM HALDOL DECONOATE GIVEN VIA Z TRACK TO PATIENT IN RIGHT DELTOID.
--- NOTE | 2017-05-03 09:29 | NUR ---
ORDER FROM YESTERDAY WAS TO PUT ON WOUND VAC TO LLE WOUND. SEALS TO THE FLOOR TO LOOK AT WOUND AND STATED SHE DID NOT THINK IT WAS DEEP ENOUGH FOR A WOUND VAC AND WAS CONCERNED BECAUSE THERE WAS NECROTIC TISSUE AROUND THE BORDER OF THE WOUND. SHE CALLED DR. ARAMBULA WHO STATED TO REDRESS THE WOUND UNTIL HE CAN SEE IT TODAY AT LUNCHTIME.
[2017-05-03 09:30] LABS: ALBUMIN 2.8 gm/dl (3.1-4.5); ALKALINE PHOSPHATASE 85 U/L (45-117); BUN 24 mg/dl (7-24); CHLORIDE 101 mmol/L (98-107); CHOLESTEROL 147 mg/dL (<200); CREATININE 1.44 mg/dL (0.70-1.30); FREE T4 1.15 ng/dl (0.76-1.46); HDL CHOLESTEROL 32 mg/dl (40-60); LDL CHOLESTEROL 100 mg/dL (9-159); MAGNESIUM 2.3 mg/dL (1.5-2.1); POTASSIUM 4.1 mmol/L (3.5-5.1); SGOT/AST 6 IU/L (3-35); SGPT/ALT 12 U/L (12-78); SODIUM 135 mmol/L (136-145); TOTAL PROTEIN 7.5 gm/dL (6.4-8.2); TRIGLYCERIDES 73 mg/dl (<150); VLDL CHOLESTEROL 15 mg/dL (6-40)
--- NOTE | 2017-05-03 09:41 | NUR ---
CHARLA RUVALCABA [id number] Please refer to the physician's history and physical for past medical history, comorbid conditions, and allergies. Diagnosis: CELLULITIS LEG DM Todd Score: 23,LOW OR NO RISK WOUND DESCRIPTIONS: Location of the wound: left posterior leg Thickness: Full Size: 8.0cm x 5.0cm x 0.2cm Tunneling: none Undermining: none Sinus Tract: none Presence of Exudate: serosanguineous Amount: Moderate Color: Yellow, brown, black Odor: None Periwound Skin Appearance: Macerated Wound edges: approximated Pain (associated with wound): none at time of assessment How does patient state this happened? pt stated it occured because of the nurse at the other facility. Surface the patient is resting on: Position Pro SKIN PREVENTION RECOMMENDATION: 1. Pressure redistribution support surface as appropriate 2. Elevate heels 3. Remove boots/TEDS every shift and reapply 4. Head of bed 30 degrees as tolerated 5. Assess nutrition and hydration 6. Manage moisture 7. Avoid the use of containment devices while in bed 8. Use absorptive products on surfaces limit layers of linens on bed 9. Turn and reposition every 1-2 hours in bed and every 1 hour in chair as tolerated 10. Weight shifts every 15 minutes while up in chair 11. Offloading with pillows or device to keep heels elevated off bed 12. Monitor skin at least every shift 13. Inspect under medical devices twice a day WOUND TREATMENT RECOMMENDATIONS: Spoke with Dr. Hernandez regarding wound vac order he stated to apply adaptic abd and cover with kerlix until he sees the patient today. This nurse explained that the wound vac order was to be changed twice a week and I asked for clarifiation on this and he stated he will see the patient first and if the vac in still needed he will change the orders he stated he will be in at lunch time.
--- NOTE | 2017-05-03 09:58 | NUR ---
PTT THERAPEUTIC. REORDERED FOR 05 TOMORROW AM.
[2017-05-03 10:05] LABS: VITAMIN D, 25-HYDROXY 16.5 ng/mL (30-100)
[2017-05-03 12:00] VITALS: BP 140/58
[2017-05-03 16:00] VITALS: BP 120/48
[2017-05-03 20:00] VITALS: BP 131/47
[2017-05-04] VITALS: BP 121/68
[2017-05-04 05:47] LABS: BASO # 0.1 10*3/uL (0.0-0.1); BASO % 1.1 % (0.0-1.0); EOS # 0.5 10*3/uL (0.0-0.4); EOS % 8.2 % (1.0-4.0); HEMATOCRIT 34.2 % (42.0-52.0); HEMOGLOBIN 10.7 g/dl (14.0-18.0); LYMPH % 31.5 % (27.0-41.0); MEAN CELL VOLUME 88.1 fl (80.0-94.0); MEAN CORPUSCULAR HGB 27.6 pg (27.0-31.0); MEAN CORPUSCULAR HGB CONC 31.3 g/dl (33.0-37.0); MEAN PLATELET VOLUME 12.4 fl (9.6-12.3); MONO # 0.6 10*3/uL (0.1-1.0); MONO % 10.1 % (3.0-9.0); NEUT # 3.1 10*3/uL (2.3-7.9); NEUT % 48.2 % (47.0-73.0); PLATELET COUNT AUTOMATED 319 10*3/uL (130-400); RED BLOOD COUNT 3.88 10*6/uL (4.50-5.90); RED CELL DISTRI WIDTH 14.8 % (0-14.5); WHITE BLOOD COUNT 6.3 10*3/uL (4.8-10.8)
[2017-05-04 06:19] LABS: ALBUMIN 2.5 gm/dl (3.1-4.5); ALKALINE PHOSPHATASE 76 U/L (45-117); BUN 20 mg/dl (7-24); CHLORIDE 111 mmol/L (98-107); CREATININE 1.05 mg/dL (0.70-1.30); POTASSIUM 4.1 mmol/L (3.5-5.1); SGOT/AST 7 IU/L (3-35); SGPT/ALT 10 U/L (12-78); SODIUM 141 mmol/L (136-145); TOTAL PROTEIN 6.7 gm/dL (6.4-8.2)
[2017-05-04 08:00] VITALS: BP 124/55
--- NOTE | 2017-05-04 09:45 | NUR ---
PT 2ND IV SITE INFLITRATED. MULTIPLE UNSUCCESSFUL STICKS MADE. PT REFUSED THE NURSES TO STICK IN CERTAIN LOCATIONS. DR PRAKASH ON FLOOR AND MADE AWARE. PT GIVEN RATIONALE ON 2ND IV SITE NEEDED. PT STATES HE WILL ALLOW AN IV ATTEMPT IN THE RAC AREA. WILL MONITOR
--- NOTE | 2017-05-04 10:15 | NUR ---
DR GAMBINOCH IN TO SEE PT. HE ASSESSED WOUND AND UPDATED ON WOUND CULTURE RESULTS.
[2017-05-04 12:40] VITALS: BP 131/52
[2017-05-04 16:00] VITALS: BP 137/57
[2017-05-04 20:00] VITALS: BP 138/59
--- NOTE | 2017-05-04 21:00 | NUR ---
Patient resting quietly with no c/o discomfort. Respirations easy and regular. Vital signs stable. No overt distress. HEPARIN INFUSING PER ORDERS. WILL MONITOR RODOLFO JONAS
[2017-05-05] VITALS: BP 133/81
[2017-05-05 05:50] LABS: BASO # 0.1 10*3/uL (0.0-0.1); BASO % 1.5 % (0.0-1.0); EOS # 0.5 10*3/uL (0.0-0.4); EOS % 7.9 % (1.0-4.0); HEMATOCRIT 33.4 % (42.0-52.0); HEMOGLOBIN 10.7 g/dl (14.0-18.0); LYMPH # 2.2 10*3/uL (1.3-4.4); LYMPH % 31.6 % (27.0-41.0); MEAN CELL VOLUME 88.6 fl (80.0-94.0); MEAN CORPUSCULAR HGB 28.4 pg (27.0-31.0); MEAN PLATELET VOLUME 12.8 fl (9.6-12.3); MONO # 0.6 10*3/uL (0.1-1.0); MONO % 8.7 % (3.0-9.0); NEUT # 3.4 10*3/uL (2.3-7.9); NEUT % 49.3 % (47.0-73.0); PLATELET COUNT AUTOMATED 314 10*3/uL (130-400); RED BLOOD COUNT 3.77 10*6/uL (4.50-5.90); RED CELL DISTRI WIDTH 14.9 % (0-14.5); WHITE BLOOD COUNT 6.9 10*3/uL (4.8-10.8)
[2017-05-05 06:17] LABS: BUN 15 mg/dl (7-24); CHLORIDE 109 mmol/L (98-107); POTASSIUM 4.1 mmol/L (3.5-5.1); SODIUM 140 mmol/L (136-145)
[2017-05-05 08:00] VITALS: BP 121/52
--- NOTE | 2017-05-05 08:30 | NUR ---
Patient resting quietly with no c/o discomfort. Respirations easy and regular. Vital signs stable. No overt distress. RODOLFO JONAS R
[2017-05-05 12:00] VITALS: BP 137/54
[2017-05-05 16:00] VITALS: BP 141/61
[2017-05-05 20:00] VITALS: BP 138/65
--- NOTE | 2017-05-05 21:15 | NUR ---
CALLED AND SPOKE TO DR OREILLY REGARDING PT HAS NO DIET ORDER. ORDER RECEIVED FOR ADA 1800 DEYANIRA
--- NOTE | 2017-05-05 21:36 | NUR ---
PT RFEFUSED SQ LOVENOX. EDUCATION PROVIDED. STILL REFUSING AT THIS TIME.
--- NOTE | 2017-05-05 22:43 | NUR ---
DR OREILLY MADE AWARE THAT PT REFUSING LOVENOX. NO ORDERS RECEIVED
--- NOTE | 2017-05-05 23:57 | NUR ---
PT VERY ANGRY ABOUT DIET ORDER. STATES HE WAS ON A NO CONCENTRATED SWEETS DIET. USING FOUL LANGUAGE. VERY AGITATED AT THIS TIME. CALLED AND SPOKE TO DR OREILLY. DIET CHANGED AT THIS TIME
[2017-05-06] VITALS: BP 139/46
--- NOTE | 2017-05-06 02:00 | NUR ---
SLEEPING. RESP EASY AND NONLABORED ON ROOM AIR. NO DISTRESS NOTED. CALL LIGHT IN REACH. WILL CONTINUE TO MONITOR.
[2017-05-06 06:55] LABS: BASO # 0.1 10*3/uL (0.0-0.1); BASO % 1.1 % (0.0-1.0); EOS # 0.5 10*3/uL (0.0-0.4); EOS % 7.3 % (1.0-4.0); HEMATOCRIT 36.2 % (42.0-52.0); HEMOGLOBIN 11.2 g/dl (14.0-18.0); LYMPH # 1.6 10*3/uL (1.3-4.4); LYMPH % 22.4 % (27.0-41.0); MEAN CELL VOLUME 88.3 fl (80.0-94.0); MEAN CORPUSCULAR HGB 27.3 pg (27.0-31.0); MEAN CORPUSCULAR HGB CONC 30.9 g/dl (33.0-37.0); MEAN PLATELET VOLUME 12.4 fl (9.6-12.3); MONO # 0.8 10*3/uL (0.1-1.0); MONO % 10.7 % (3.0-9.0); NEUT # 4.2 10*3/uL (2.3-7.9); NEUT % 57.5 % (47.0-73.0); PLATELET COUNT AUTOMATED 344 10*3/uL (130-400); RED CELL DISTRI WIDTH 15.1 % (0-14.5); WHITE BLOOD COUNT 7.3 10*3/uL (4.8-10.8)
[2017-05-06 07:37] LABS: BUN 19 mg/dl (7-24); CHLORIDE 108 mmol/L (98-107); CREATININE 0.85 mg/dL (0.70-1.30); POTASSIUM 4.3 mmol/L (3.5-5.1); SODIUM 142 mmol/L (136-145)
--- NOTE | 2017-05-06 07:53 | NUR ---
LAB CALLED WITH CRITICAL BSG OF 43. PT WAS LOW THIS AM AND WAS GIVEN SOMETHING TO EAT. THIS RN RECHECKED WITH GLUCOMETER. RESULT WAS 80. DR CARLISLE NOTIFIED.
[2017-05-06 08:00] VITALS: BP 148/68
[2017-05-06 12:00] VITALS: BP 153/56
--- NOTE | 2017-05-06 12:09 | NUR ---
Nutritional Support Services Note: Discussing diet with pt. NITIN diet at this time. He is okay with the diet and understands the foods he should avoid. He has mutiple compliants about his meal trays. He has compliants about items he doesn't want on his tray. All likes and dislikes obtained and relayed to staff. Will continue to follow. Desiree Schmidt
[2017-05-06] MEDS ORDERED: Vitamin D PO ×2 (14:29→14:46)
[2017-05-06] MEDS ORDERED: XARE15TA PO (14:29)
[2017-05-06 16:00] VITALS: BP 160/65
[2017-05-06] MEDS ORDERED: DOXYCYCLINE100 M3 PO (16:13)
--- NOTE | 2017-05-06 18:45 | NUR ---
Discharge instructions reviewed with patient/family. Patient receptive and verbalizes understanding. Follow-up care arranged. Written instructions given to patient/family. RODOLFO JONAS
--- NOTE | 2017-05-06 18:55 | NUR ---
REPORT GIVEN TO [facility] NURSE
== END 2017-05-06 18:55 | disposition home or self-care (01) | DRG 602 ==
LOC: 4E 13:56
PROVIDERS: Internal Medicine; Internal Medicine Nephrology; Registered Nurse; ADMIT Internal Medicine
DX: L03.116 Cellulitis of left lower limb (principal); N17.0 Acute kidney failure with tubular necrosis; I82.411 Acute embolism and thrombosis of right femoral vein; E44.0 Moderate protein-calorie malnutrition; L97.929 Non-pressure chronic ulcer of unspecified part of left lower leg with unspecified severity; E11.628 Type 2 diabetes mellitus with other skin complications; F25.9 Schizoaffective disorder, unspecified; E66.09 Other obesity due to excess calories; K21.9 Gastro-esophageal reflux disease without esophagitis; E11.51 Type 2 diabetes mellitus with diabetic peripheral angiopathy without gangrene; E03.9 Hypothyroidism, unspecified; B96.20 Unspecified Escherichia coli [E. coli] as the cause of diseases classified elsewhere; L03.115 Cellulitis of right lower limb; B96.4 Proteus (mirabilis) (morganii) as the cause of diseases classified elsewhere; I12.9 Hypertensive chronic kidney disease with stage 1 through stage 4 chronic kidney disease, or unspecified chronic kidney disease; E11.22 Type 2 diabetes mellitus with diabetic chronic kidney disease; N18.9 Chronic kidney disease, unspecified; E83.41 Hypermagnesemia; Z91.14 Patient's other noncompliance with medication regimen; Z90.49 Acquired absence of other specified parts of digestive tract; Z80.7 Family history of other malignant neoplasms of lymphoid, hematopoietic and related tissues; Z88.8 Allergy status to other drugs, medicaments and biological substances; Z88.6 Allergy status to analgesic agent; Z79.82 Long term (current) use of aspirin; Z79.899 Other long term (current) drug therapy; Z79.4 Long term (current) use of insulin; Z68.31 Body mass index [BMI] 31.0-31.9, adult

== ENCOUNTER 2017-05-06 16:20 | Inpatient (IN) | payer OTHER ==
[~2017-05-06] VITALS: Wt 96.1 kg
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
--- NOTE | ~2017-05-06 | WRIGHTHP ---
[place], [place] PATIENT HISTORY AND PHYSICAL EXAM NAME: CHARLA RUVALCABA UNIT #: [id number] ROOM: 317 DOCTOR: JADE BETANCOURT MD BIRTHDATE: [birth year] DOS: 05/07/2017 INITIAL PSYCHIATRIC EVALUATION. CHIEF COMPLAINT: "I don't want you, get out of here, you know why." HISTORY OF PRESENT ILLNESS: This is a 56-year-old white male known to me from [place] and a brief psych stay here before he was transferred medically due to ongoing medical issues. The patient is readmitted due to a continuation of his gross psychotic symptomatology. He remains grossly psychotic and paranoid, very agitated and irritable. He did not sleep at all last night. He continues to feel that people are out to get him. He is refusing care and meds and is very obstructive in his overall level of care. He is admitted now to rule out organic factors and attempt to stabilize on medication with the ultimate plan to return to [place] in [place], [place]. PAST MEDICAL HISTORY: Remarkable for diabetes, hypertension, GERD, obesity, peripheral vascular disease, hypothyroidism. MENTAL STATUS: The patient is alert and oriented to person, place, and time. Mood is very irritable. He is on edge and is rather short fuse. He was very terse and agitated towards me. There is a great level of paranoia present, as stating that there are people here are out to get him and he knows that I know who they are. The patient does not exhibit any signs of extrapyramidal symptoms, tardive dyskinesia. Memory is intact. DIAGNOSIS: Acute exacerbation of schizophrenia. PLAN: The patient did receive Haldol decanoate 200 mg IM last week. I will augment with another 100 mg and then plan to dose him at 300 mg monthly. The patient reports he did not sleep, he does have an air of depression about him. I will add Remeron 15 mg at bedtime. It is unclear whether or not he will be compliant with oral medications, but we will at least attempt to treat this symptom complex. We will attempt to engage in individual and yates milieu activity with the ultimate plan to return back to [place] when psychiatrically stable. [place], [place] PATIENT HISTORY AND PHYSICAL EXAM NAME: CHARLA RUVALCABA UNIT #: [id number] ROOM: [facility] DOCTOR: JADE BETANCOURT MD BIRTHDATE: [birth year] JADE BETANCOURT MD CM:HISPHYS:PATIENT HISTORY AND PHYSICAL EXAMINATION [id number] JADE BETANCOURT MD 05/07/17 0925 interface
--- NOTE | ~2017-05-06 | PR ---
[place], [place] PROGRESS NOTE NAME: CHARLA RUVALCABA UNIT #: [id number] ROOM: 317 DOCTOR: JADE BETANCOURT MD BIRTHDATE: [birth year] DOS: 05/08/2017 CHIEF COMPLAINT: "I don't want you here, please leave." SUMMARY OF THE VISIT: The patient was interviewed in his room. Initially, he was rather confrontational and demanded that I leave. When I did nod and engaged him in conversation, he was at least pleasant. I did discuss with him what he felt his needs were and he did report to me that he liked it much better here than at [facility] and would like to be able to leave [facility] to be in a long-term care facility in the [facility]. I did also let him know that I would pass this on in treatment team and look into what options are available to him if any. Nurses report that he is compliant with his medications, especially with select nurses who know him from [facility]. He has received 2 doses of the Haldol Decanoate already for a maximum dose of 300 mg intramuscularly. I will go ahead and order him Haldol Decanoate 300 mg IM every 30 days to start May 27. We will continue to monitor for risk, benefit and attempt at best to engage him in his overall treatment. MENTAL STATUS: He is alert and oriented. Mood does still seem to be rather depressed and he is flat, blunted, and rather nihilistic in his presentation. He is still somewhat paranoid, but is much more engaging than he had been earlier. PLAN: At this point in time, I will maintain his current psychotropic regimen. We will continue to attempt to engage him in therapy. We will explore what alternative placement options exist and will then discharge him to the least restrictive environment when psychiatrically stable. JADE BETANCOURT MD CM:PNTRANS [id number] JADE BETANCOURT MD 05/08/17 153 interface
--- NOTE | ~2017-05-06 | PR ---
[place], [place] PROGRESS NOTE NAME: CHARLA RUVALCABA UNIT #: [id number] ROOM: 309 DOCTOR: JADE BETANCOURT MD BIRTHDATE: [birth year] DOS: 05/09/2017 CHIEF COMPLAINT: "I don't want breakfast. I don't want anything." SUMMARY OF THE VISIT: The patient was interviewed as he once again was sitting in his room alone. As I approached, he did not demand that I leave. He, however, continues to be negative and very irritable. He stated to me that he did not want breakfast. He is still fixated on not returning to [place] but going to home in a [place]. When I discussed with him the possibility of going to a home near [place], he reported that he would rather stay at [place] then to change if it is not actually in [place]. He refused his Remeron and continues to exhibit depressive symptoms. His irritability well present seems to be lessening in that he is at least tolerating my presence in his room without demanding that I leave. He does seem to redirect with a little less difficulty. Of note, he seems to be tolerating the Haldol well. He did not seem to be exhibiting any extrapyramidal symptoms or tardive dyskinesia. There does not seem to be any sedation or somnolence noted as well. MENTAL STATUS: He is alert and oriented. He remains irritable and short fused and his responses did still tend to be short and terse with me, but he did engage more in normal conversation. He does still seem to have residual paranoia, does not necessarily want to eat the food that is coming from the cafeteria, etc., but does seem to at least entertain the possibility of working with us here in a more therapeutic manner. Memory does seem to be intact for the best that I can ascertain. He does remain uncooperative, however. PLAN: Given the fact that he does not want to take the Remeron at this point, I will just discontinue it. We will continue to attempt to engage him in therapeutic activities. At this point in time since he is tolerating the Haldol Decanoate well, I will discuss the case further with social media marketer and the treatment team to determine what we need to do to finalize discharge plans. We will discharge him to the least restrictive environment then when psychiatrically stable. [place], [place] PROGRESS NOTE NAME: CHARLA RUVALCABA UNIT #: [id number] ROOM: 309 DOCTOR: JADE BETANCOURT MD BIRTHDATE: [birth year] JADE BETANCOURT MD CM:PNTRANS [id number] JADE BETANCOURT MD 05/09/17 1022 interface
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
[~2017-05-06 16:20] MED LIST changes: +ATIVAN IM; +ATIVAN1 MG PO; +DOXYCYCLINE100 M3 PO; +GEODON20 M1 IM; +HALDOL DEC100 MG/1 M IM; +HALDOL5 MG PO; +HALDOL5 MG/1 ML IM; +NOVOLOG10 ML IV; +Vitamin D PO; +XARE15TA PO
--- NOTE | 2017-05-06 18:55 | NUR ---
DR. BETANCOURT NOTIFIED OF ADMISSION AND MEDICAITONS ORDERED.
--- NOTE | 2017-05-06 18:55 | NUR ---
CHARLA RUVALCABA a 56 year old M admitted via wheel chair from the ADMITTING as a voluntary admission BY LEGAL GUARDIAN. Arrived on unit at 1855. ALLERGIES:TYLENOL, INSULIN R. Vital signs are:97.9, 136/69, 110,18, 97%RA . The client signed the following forms with stated understanding: Authorization For The Release of Medical Information, Clothing List, Consent to Voluntary Admission and Hospitalization, Consent and Release Forms/Receipt of Rights, Acknowledgement of Advance Directive Information, Behavioral Health Consent Form, and Informed Consent of Medications. [facility] A search was conducted and hazardous articles were removed. Client was oriented to the unit. NESHA ARAMBULA
--- NOTE | 2017-05-06 19:59 | NUR ---
DR. OREILLY CALLED AND PATIENT PLACED UNDER DR. PRAKASH FOR MEDICAL MANAGEMENT
--- NOTE | 2017-05-06 20:22 | NUR ---
DR. OREILLY CALLED DUE TO PATIENT ALLERGY TO TYLENOL AND PATIENT NEEDING TO BE PUT ON SLIDING SCALE INSULIN. ACCU CHECK ORDER WITH INSULIN PUT IN FOR ACHS.
[2017-05-06 20:34] VITALS: BP 136/69
--- NOTE | 2017-05-06 20:57 | NUR ---
PATIENT WITH DRESSINGS TO BILATERAL LOWER EXTREMITIES. PATIENT WOULD NOT LET THIS NURSE TAKE PICTURES OF WOUNDS. PATIENT STATING THAT THEY JUST TOOK PICTURES TODAY AND THEY CHANGED MY DRESSINGS TODAY. THIS NURSE EXPLAINED TO PATIENT THAT HE IS COMING FROM ANOTHER UNIT AND PHOTOS NEEDED TO BE TAKEN AGAIN. PATIENT STATED, NO, I WILL DO IT TOMARROW. THERE IS NO POINT IN UNCOVERING MY LEGS AGAIN TODAY
--- NOTE | 2017-05-07 05:01 | NUR ---
24 HR chart check completed.
--- NOTE | 2017-05-07 05:05 | NUR ---
B: MEDICATION COMPLAINCE I: THERAPEUTIC COMMUNICATION, 1:1 R: I WILL TRY AND TAKE MY MEDICATION, BUT I CAN'T TAKE EVERYTHING NEW THAT THEY PRESCRIBED ME P: MEDICATION COMPLIANCE, PARTICIPATE IN GROUP ACTIVITIES PATIENT CONTINUES ON KEFLEX 500MG PO Q6HRS. DRESSINGS INTACT TO BILATERAL LOWER EXTREMITIES AND PATIENT REFUSED PHOTOGRAPHS AT THIS TIME
--- NOTE | 2017-05-07 06:10 | NUR ---
DR. OREILLY CALLED ABOUT MEDICATION CLARIFICATION. AWARE THAT DOXYCYCLINE AND KEFLEX IS ORDERED AND TO DISCONTINUE DOXYCYCLINE. UPDATED WITH ORDERS FOR LEVEMIR AND LANTUS. ORDER TO DISCONTINUE LANTUS
[2017-05-07 07:35] LABS: BASO # 0.1 10*3/uL (0.0-0.1); BASO % 1.1 % (0.0-1.0); EOS # 0.5 10*3/uL (0.0-0.4); EOS % 7.1 % (1.0-4.0); HEMATOCRIT 38.8 % (42.0-52.0); HEMOGLOBIN 12.3 g/dl (14.0-18.0); LYMPH # 1.5 10*3/uL (1.3-4.4); LYMPH % 20.8 % (27.0-41.0); MEAN CELL VOLUME 87.8 fl (80.0-94.0); MEAN CORPUSCULAR HGB 27.8 pg (27.0-31.0); MEAN CORPUSCULAR HGB CONC 31.7 g/dl (33.0-37.0); MONO # 0.7 10*3/uL (0.1-1.0); MONO % 9.3 % (3.0-9.0); NEUT # 4.4 10*3/uL (2.3-7.9); NEUT % 59.9 % (47.0-73.0); PLATELET COUNT AUTOMATED 360 10*3/uL (130-400); RED BLOOD COUNT 4.42 10*6/uL (4.50-5.90); RED CELL DISTRI WIDTH 15.1 % (0-14.5); WHITE BLOOD COUNT 7.3 10*3/uL (4.8-10.8)
[2017-05-07 08:07] LABS: ALBUMIN 3.2 gm/dl (3.1-4.5); BUN 16 mg/dl (7-24); CHLORIDE 104 mmol/L (98-107); CHOLESTEROL 160 mg/dL (<200); CREATININE 0.94 mg/dL (0.70-1.30); POTASSIUM 4.5 mmol/L (3.5-5.1); SGOT/AST 57 IU/L (3-35); SGPT/ALT 45 U/L (12-78); SODIUM 138 mmol/L (136-145); TRIGLYCERIDES 77 mg/dl (<150); VLDL CHOLESTEROL 15 mg/dL (6-40)
[2017-05-07 08:14] LABS: ALKALINE PHOSPHATASE 74 U/L (45-117); HDL CHOLESTEROL 39 mg/dl (40-60); LDL CHOLESTEROL 106 mg/dL (9-159); TOTAL PROTEIN 8.1 gm/dL (6.4-8.2)
[2017-05-07 08:30] LABS: VITAMIN D, 25-HYDROXY 18.4 ng/mL (30-100)
[2017-05-07 08:54] VITALS: BP 143/67
--- NOTE | 2017-05-07 09:00 | NUR ---
Dr. Knapp in to see Kwan this morning and orders were received for podiatry consult. Dr. Menon (office) was notified of consultation.
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
--- NOTE | 2017-05-07 19:19 | NUR ---
PT UNABLE TO ATTEN GROUPS DUE TO BEING IN CONTACT ISOLATION.
--- NOTE | 2017-05-07 21:55 | NUR ---
PATIENT REFUSED REMERON AND REFUSED TO HAVE INSULIN GIVEN AT HS. PATIENT DID RECEIVE AND EAT HS SNACK. PATIENT STATING MY BLOOD SUGAR HAS BEEN RUNNING LOW ALL DAY AND I AM NOT GOING TO TAKE MY INSULIN. THIS NURSE WITH ATTEMPT TO HAVE PATIENT ELEVATE BILATERAL LOWER EXTREMITIES AND PATIENT REFUSED AT THIS TIME. PATIENT STATING, I AM FINE THE WAY I AM
--- NOTE | 2017-05-08 03:16 | NUR ---
24 HR chart check completed.
--- NOTE | 2017-05-08 05:28 | NUR ---
B: MEDICATION COMPLIANCE I: THERAPEUTIC COMMUNICAIJAM, 1:1 R: I AM NOT GOING TO TAKE ANY NEW MEDICATIONS THAT THEY GIVE ME. THEY ARE NOT GOING TO HELP ME ANYWAY P: MEDICATION COMPLIANCE, GROUP ACTIVITIES, ADJUST AND MONITOR MEDICATIONS ORDERED DAILY
--- NOTE | 2017-05-08 05:57 | NUR ---
Q 15 MINUTE CHECKS MAINTAINED. SLEPT > 8 HOURS THROUGHOUT SHIFT
--- NOTE | 2017-05-08 06:58 | NUR ---
PATIENT REFUSING INSULIN THIS MORNING. PATIENT UPSET THAT LEVEMIR IS NOT ORDERED FOR 0700. PATIENT REFUSED TO SIGN PAPER WORK FROM ADMISSION STATING HE HAS ALREADY SIGNED ALL THE PAPER WORK AND NOT SIGNING ANYMORE
--- NOTE | 2017-05-08 08:21 | NUR ---
PATIENT REFUSED TO CHECK VITAL SIGNS.
--- NOTE | 2017-05-08 08:42 | NUR ---
Exercise/Trivia-Morning group BINGO-afternoon group Patient unable to attend any groups due to isolation. Paient refused 1:1. knowing patient enjoys Word Search books i copied an entire book of them for him. Patient refused markers to use, wants pen or pencil. Patient educated on policy of not allowing pens or pencils in rooms. Paitent also refused crayons offered to him. Patient upset and refused all types of writing implements but kept the Word Searches
[2017-05-08 10:00] VITALS: BP 116/65
--- NOTE | 2017-05-08 10:01 | NUR ---
Kwan is refuing to allow staff to take his vital signs. He is also selective with taking his medications in spite of education provided by staff. See Mar for medication refusals.
--- NOTE | 2017-05-08 11:39 | NUR ---
Nutritional Support Services Note: Pt currently on a low sodium diet. Recommend diet change to NCS. He has a good understanding of the NCS diet as I discussed it with in while he was a patient on the medical floor. Will follow as needed. BS tend to flucuate. Desiree Schmidt
--- NOTE | 2017-05-08 16:14 | NUR ---
Kwan remains on contact isolation precautions per policy. Mood is depressed and he is noted to voice some angry feelings directed @ others who have cared for him. He states that he does not like where he currently resides and would like to have a new place to live. He was encouraged to speak with clinical social work aide to explore options available to him. His responses to staff questions have been noted to be negative for the most part. Dressing changes completed to legs bilaterally as prescribed. Refer to [facility] flowsheet for specific monitoring. Also refer to process intervention screen for wound assessment and care. He denies any thoughts of harm to himself or others. Dr. Knapp in to see him and orders were received for Haldol Dec 300 mg IM q 30 days with the next dose to start on 05-27-17.
--- NOTE | 2017-05-08 21:50 | NUR ---
PATIENT SITTING IN CHAIR IN ROOM. PATIENT REFUSED TO TAKE REMERON 15MG AT HS. PATIENT STATING HE WILL NOT BE TAKING ANY MEDICATIONS THAT HE DOES NOT NEED. CONTINUES ON KEFLEX AND CONTACT PRECAUTIONS FOR +MRSA IN LOWER EXTREMITIES
--- NOTE | 2017-05-09 02:54 | NUR ---
B: AGITATION I: THERAPEUTIC COMMUNICATION, 1:1 R: I DON'T WANT TO TAKE THE REMERON AND I WISH THEY WOULD SEND ME YOGART IN A SEALED CONTAINER THAT YOU GET AT A STORE P: MEDICATION COMPLIANCE, COPING SKILLS FOR DECREASE AGITATION
--- NOTE | 2017-05-09 05:09 | NUR ---
24 HR chart check completed.
--- NOTE | 2017-05-09 05:51 | NUR ---
Q 15 MINUTE SAFETY CHECKS MAINTAINED. SLEPT > 7 HRS THROUGHOUT SHIFT
--- NOTE | 2017-05-09 07:09 | NUR ---
DR. ZAMUDIO CALLED AND UPDATED ABOUT PATIENT BLOOD SUGAR OF 59. DR. ZAMUDIO WANTS PATIENT TO DRINK ORANGE JUICE AT THIS TIME
--- NOTE | 2017-05-09 07:45 | NUR ---
PT REFUSED VITAL SIGNS AND LAB WORK THIS AM.
--- NOTE | 2017-05-09 08:41 | NUR ---
Exercise/Letter to yourself- Morning group BINGO-Afternoon group. Patient unable to attend groups due to isolation. Patient refuses 1:1 and again refused markers or crayons to do his word searches,wating a pen or pencil,perferably a pencil with an eracer. patient again reminded of policy. This staff member talked with the director of the unit about the situation and director took a pen apart and okayed just the inside of the pen. Patient was still not happy because "it doesn't have an eracer." Again explained he could not have a pencil. Patient accepted inside of pen to use
--- NOTE | 2017-05-09 09:11 | NUR ---
PT REFUSED LAB DRAW, DR. BETANCOURT AWARE, STATES TO D/C LAB ORDER.
--- NOTE | 2017-05-09 10:28 | NUR ---
PT IS ALERT AND ORIENTED TO PERSON, PLACE, TIME AND SITUATION. MEMORY APPEARS INTACT. RESPIRATIONS EASY ON ROOM AIR. MOOD REMAINS DEPRESSED, EASILY ANGRY/IRRITABLE. AFFECT IS FLAT. SPEECH IS WNL AND COHERENT, ABLE TO VERBALIZE NEEDS WITHOUT DIFFICULTY. PT DENIES HALLUCINATIONS, NO RESPONSE TO INTERNAL STIMULI NOTED. PT DENIES SI/HI. NO DELUSIONS/PARANOIA NOTED. PT CONTINUES TO BE SELECTIVE WITH MEDICATION REGIME, ONLY AGREED TO TAKE PO HALDOL AND XARELTO THIS AM. PT SHORT AND TERSE WITH THIS NURSE, AT FIRST REFUSED TO SPEAK TO THIS NURSE AT ALL. PT REFUSED AM DOSE OF LEVEMIR, STATES "NO. I WANTED THAT AT 7AM, NOT NOW." ALSO REFUSED AM PO VITAMINS AND ASPIRIN STATING "I TOLD THEM NO VITAMINS, I DON'T KNOW WHY YOU KEEP ASKING ME. I DON'T WANT THAT SHIT." CONTACT ISOLATION CONTINUES PER POLICY AND PT CONTINUES ON PO ATB THERAPY. PT REFUSES TO ELEVATE BLE DESPITE ENCOURAGEMENT FROM STAFF. NO DISTRESS NOTED. CALL RODRIGUEZ WITHIN REACH. FLUIDS PROVIDED. NO DISTRESS NOTED. Q15 MIN SAFETY CHECKS MAINTAINED, REFER TO [facility] FLOWSHEET FOR SPECIFIC MONITORING.
--- NOTE | 2017-05-09 10:52 | NUR ---
Patient not appropriate for Occupational Therapy at this time as he has refused some medications, refused bloodwork and vitals this date. OTR will attempt at a later date. Thank you for this referral. Vandana Renee OTR/suri
--- NOTE | 2017-05-09 10:54 | NUR ---
PHYSICAL THERAPY PAtient not appropiate for PT this date. Thank you for this referral. Nadine Billings,PT
--- NOTE | 2017-05-09 11:22 | NUR ---
DAVID spoke with David at [facility]. She did the change in condition on pt. Is calling now to see if results are done and will forward a copy to this unit also. pt. can be d/c'ed tomorrow if Pasrr results here and arrangements have been made per Dr. Knapp giving permission for d/c tomorrow per DAVID FRANKEL.
--- NOTE | 2017-05-09 11:35 | NUR ---
BSG AT THIS TIME 59, OFFERED PT ORANGE JUICE/CRACKERS, PT REFUSED, ASKED PT IF HE WOULD BE EATING LUNCH, PT NODDED HEAD YES, PT REFUSING TO TALK TO THIS NURSE. ENCOURAGED PT TO EAT LUNCH DUE TO BSG. WOUND CARE PROVIDED AT THIS TIME.
--- NOTE | 2017-05-09 11:57 | NUR ---
[facility] STAFF SONY DELIVERED FOOD TRAY TO PT'S ROOM, PT BECAME ANGRY REGARDING YOGURT AND SLOPPY BAILEE BEING ON BUN. [facility] OFFERED TO REMOVE BUN, PT THREW SANDWICH AT [facility]. [facility] REMINDED PT IMPORTANCE OF EATING LUNCH DUE TO BSG 59 - PT STATES "I DON'T GIVE A F-CK IF MY SUGAR DROPS. TELL MY NURSE TO SUCK IT." PT LEFT ALONE WITH REMAINDER OF LUNCH TRAY AT THIS TIME, WILL REASSESS.
--- NOTE | 2017-05-09 13:56 | NUR ---
PT ATE 50% OF LUNCH AND 480CC OF FLUID, SITTING READING NEWSPAPER AT THIS TIME. NO S/S HYPOGLYCEMIA NOTED.
--- NOTE | 2017-05-09 14:07 | NUR ---
CALL PLACED TO DR. BEDOYA'S OFFICE, SPOKE TO DR. BEDOYA, MADE AWARE OF DISCHARGE FOR TOMORROW BACK TO [facility], DR. BEDOYA STATES TO CONTINUE SAME TREATMENTS AND STATES "I'LL CHECK TO SEE IF OUR OUTREACH DOCTORS CAN SEE HIM THERE."
[2017-05-09] MEDS ORDERED: Bactroban Oint22 GM T (14:12)
--- NOTE | 2017-05-09 16:49 | NUR ---
SHIFT CHART CHECK COMPLETED.
--- NOTE | 2017-05-09 19:49 | NUR ---
MARCIA NOTIFIED xin Richter AT [facility] THAT PT WOULD BE DISCHARGE ON Saturday. Toan WOULD LIKE UPDATED INFORMATIN FAXED ON SATURDAY.
--- NOTE | 2017-05-09 19:50 | NUR ---
MARCIA RECEIVED CALL FROM [facility] INQUIRING ABOUT PT. MARCIA GAVE UPADRTE AND PENDING DISCHARGE FOR Saturday. SHERLYN WILL VISIT PT SAT OR SATURDAY. SHERLYN INFORMED MARCIA THAT PT IS OUT OF BEDHOLD DAYS. LOC NEEDS SUBMITTED TO [facility]. MARCIA WILL LET [facility] KNOW.
--- NOTE | 2017-05-09 20:33 | NUR ---
REFUSED VITALS. GOT RESP RATE THROUGH OBSERVATION. REFUSES TO ANSWER ANY QUESTIONS OTHER THAN YES OR NO
--- NOTE | 2017-05-09 21:00 | NUR ---
REFUSED 1:1. REFUSED TO ANSWER ANYTHING THAT REQUIRED MORE THAN "I DON'T CARE, YES OR NO". TRIED TO GET CLIENT TO LAY DOWN BUT WAS TOLD TO GET OUT. WILL MONITOR
--- NOTE | 2017-05-10 00:18 | NUR ---
CONTINUES TO REFUSE TO LAY DOWN IN BED OR ELEVATE LEGS. UNABLE TO REDIRECT
--- NOTE | 2017-05-10 05:15 | NUR ---
24 HR chart check completed.
--- NOTE | 2017-05-10 05:16 | NUR ---
P#1 NONCOMPLIANCE WITH MEDICATION AND MEDICAL CARE I- EDUCATE ON ALL MEDICATIONS. TEACH IMPORTANCE OF FOLLOWING DOCTORS ORDERS TO HEAL LEGS P- HEALED LEGS, MEDICATION COMPLIANCE
--- NOTE | 2017-05-10 06:43 | NUR ---
BSG CRITICAL LOW X'S 2. STAT REFLUX ORDERED, CLIENT ASYMPOTOMATIC. REFUSES JEN CRACKERS AND PEANUTBUTTER. WILL DRINK WARM OJ WITHOUT SUGAR.
--- NOTE | 2017-05-10 06:53 | NUR ---
LAB HERE. CLIENT REFUSED LAB DRAW. DRANK ORANGE JUICE
--- NOTE | 2017-05-10 07:07 | NUR ---
NOTIFIED RESIDENT OF CRITICAL LOW SUGAR AND THAT HE DRANK 2 ORANGE JUICES. ORDERS TO GIVE 2 ADDITIONAL ORANGE JUICES WITH SUGAR.
[2017-05-10] MEDS ORDERED: HALOPERIDO100 MG/1 M IM (08:28)
[2017-05-10] MEDS ORDERED: HALDOL5 MG PO ×2 (08:28)
--- NOTE | 2017-05-10 08:30 | NUR ---
TREATMENT TEAM WAS GABRIEL WITH THE FOLLOWING: DR. BETANCOURT, AT, AN, AND MARCIA. PT TO BE DISCHARGED TO [facility] TODAY.
--- NOTE | 2017-05-10 09:43 | NUR ---
physical therpay PAtient with no PT needs/skills. PAtient is 100 % (I) with mobility. No PT needs per patient and patient (I) ambulating [facility] room without difficulties. D/c PT. Thank you for this referral. Nadine machado,PT
--- NOTE | 2017-05-10 09:44 | NUR ---
Patient observed performing independent functional mobility in his room on [facility] to and from bathroom w/ 4 wheeled walker. Patient offered Occupational Therapy evaluation however patient pleasantly declined indicating that he did not need therapy. D/c OT order at this time d/t patients refusal. Thank you for this referral. Vandana Renee OTR/L
--- NOTE | 2017-05-10 11:14 | NUR ---
Exercise/Independent activity Exercise helps the patient to continue to stay active because most patients lay down or sit all day. Independent activity allows the patient to choose what they want to do during that time. Patient does not attend group due to isolation. I have checked on patient to see if he needs anymore Word Search pages and he does not. Patient refuses any 1:1
--- NOTE | 2017-05-10 11:44 | NUR ---
Spoke with Automated Equipment Engineer Technician who states that Dr. aR MD and one other need to write a letter defending why pt. will need forced medications then Automated Equipment Engineer Technician can file in probate court to see if the dishwashing machine repairer will be willing to let this happen. This information was passed along to Dr. Knapp.
--- NOTE | 2017-05-10 12:43 | NUR ---
DR. MAE NOTIFIED OF PT DISCHARGE
--- NOTE | 2017-05-10 13:10 | NUR ---
DR. MAE UPDATED ON A TIME FRAME FOR PT BEING DISCHARGED. AFTER 2 PM
--- NOTE | 2017-05-10 13:52 | NUR ---
PT REFUSED MORNING MEDICATIONS, REFUSED BS RECHECK ,AND 1130 BS,PT REFUSED WOUND CARE, AND PHOTOS. PT IS IRRITABLE AND NOT COOPORATING
--- NOTE | 2017-05-10 13:53 | NUR ---
NURSE TO NURSE GIVEN TO MARTINEZ AT [facility]
--- NOTE | 2017-05-10 15:30 | NUR ---
METAL BED ASSEMBLER: PT TRANSPORTATION WILL BE HERE AROUND 1700 TO TRANSPORT PATIENT TO [facility]
--- NOTE | 2017-05-10 16:32 | NUR ---
MARCIA FAXED UPDATED INFORMATION TO [facility]
--- NOTE | 2017-05-10 16:33 | NUR ---
SW LEFT VM FOR [facility]HERWINE DON THAT PT NEEDED LOC TO RETURN DUE TO BE OUT OF BEDHOLD DAYS PER SIMEON ARBOLEDA.
--- NOTE | 2017-05-10 16:34 | NUR ---
MARCIA RECEIVED CALL FROM [facility] THAT PT NEEDED LOC COMPLETED. MARCIA INFORMED HER THAT UNIT DOES NOT DO LOCS AND INFORAMTION WAS FAXED THIS AM TO [facility] AND VM WAS LEFT. MICHAEL INFORM MARCIA THAT [facility] FAX NOT WORKING. MARCIA FAXED INFORMATION TO [facility] AT [phone]
--- NOTE | 2017-05-10 16:35 | NUR ---
MARCIA RECEIVED ANOTHER CALL FROM [facility] INFORMING SW THAT PT DID NOT MEET LOC CRITERIA. MARCIA INFORMED HER THAT HE MEETS CRITERIS DUE TO 24 HOUTR SUPERVISION AND MEDICATION ADMINISTRATION. [facility] MADE THE CHANGES AND WILL SUBMIT IT TO [facility].
--- NOTE | 2017-05-10 16:37 | NUR ---
SW ASKED UNIT COORINDATOR TO SCHEDULE TRANSPORATION FOR PT TO RETURN TO [facility].
--- NOTE | 2017-05-10 16:38 | NUR ---
SW COPIED DISCHARGE PAPERWORK WORK AND COMPLETED AMBULANCE FORM FOR [facility]. SW ASKED SERGING MACHINE OPERATOR TO FAX DISCHARGE PAPERWORK TO [facility] .
--- NOTE | 2017-05-10 19:16 | NUR ---
PT LEFT BY AMBULANCE GOT UP ON [facility], PT RECIEVED ALL HIS PERSONAL BELONGINGS, PT CLAIMS HE HAD STUFF IN A LOCK BOX, THIS NURSE, AND OTHER NURSE AND MILEUS LOOKED AND FOUND A BLANK LOCK BOX PAPER.
== END 2017-05-10 19:20 | disposition home or self-care (01) | DRG 885 ==
LOC: 3N 16:20
PROVIDERS: ADMIT Psychiatry & Neurology Psychiatry
DX: F25.9 Schizoaffective disorder, unspecified (principal); E11.51 Type 2 diabetes mellitus with diabetic peripheral angiopathy without gangrene; E11.622 Type 2 diabetes mellitus with other skin ulcer; E44.0 Moderate protein-calorie malnutrition; L97.829 Non-pressure chronic ulcer of other part of left lower leg with unspecified severity; I87.2 Venous insufficiency (chronic) (peripheral); E11.65 Type 2 diabetes mellitus with hyperglycemia; I10 Essential (primary) hypertension; K21.9 Gastro-esophageal reflux disease without esophagitis; E03.9 Hypothyroidism, unspecified; E66.09 Other obesity due to excess calories; Z88.6 Allergy status to analgesic agent; Z88.8 Allergy status to other drugs, medicaments and biological substances; Z90.49 Acquired absence of other specified parts of digestive tract; Z79.4 Long term (current) use of insulin; Z79.82 Long term (current) use of aspirin; Z79.899 Other long term (current) drug therapy

== ENCOUNTER 2024-09-04 14:58 | Inpatient (IN) | payer OTHER ==
[~2024-09-04] VITALS: Ht 167.6 cm; Wt 80.1 kg
[~2024-09-04 14:58] MED LIST changes: +Bactroban Oint22 GM T; +HALOPERIDO100 MG/1 M IM
[2024-09-04 15:56] LABS: BASO # 0.1 10*3/uL (0.0-0.1); EOS # 0.4 10*3/uL (0.0-0.4); EOS % 5.6 % (1.0-4.0); HEMATOCRIT 27.7 % (42.0-52.0); MEAN CELL VOLUME 72.3 fl (80.0-94.0); MEAN CORPUSCULAR HGB 20.4 pg (27.0-31.0); MEAN CORPUSCULAR HGB CONC 28.2 g/dl (33.0-37.0); MEAN PLATELET VOLUME 10.7 fl (9.6-12.3); MONO # 0.8 10*3/uL (0.1-1.0); MONO % 10.6 % (3.0-9.0); NEUT # 5.5 10*3/uL (2.3-7.9); NEUT % 69.6 % (47.0-73.0); PLATELET COUNT AUTOMATED 483 10*3/uL (130-400); RED BLOOD COUNT 3.83 10*6/uL (4.50-5.90); RED CELL DISTRI WIDTH 18.9 % (0-14.5); WHITE BLOOD COUNT 7.9 10*3/uL (4.8-10.8)
[2024-09-04 16:24] LABS: ALKALINE PHOSPHATASE 89 U/L (46-116); BUN 11 mg/dl (9-23); CHLORIDE 104 mmol/L (98-107); POTASSIUM 3.9 mmol/L (3.4-5.1); SGPT/ALT 10 U/L (5-49); TOTAL PROTEIN 7.5 gm/dL (6.0-8.0)
[2024-09-04 16:27] LABS: ETHYL ALCOHOL < 3.0 mg/dl (<3)
[2024-09-04 18:42] LABS: BILIRUBIN Negative (Negative); BLOOD Negative (Negative); CLARITY Clear (Clear); COLOR Yellow (Yellow); GLUCOSE Negative (Negative); KETONE Negative (Negative); LEUKO ESTERASE 2+ (Negative); NITRITE Negative (Negative); PH 6.5 (4.5-8.0); SPECIFIC GRAVITY 1.015 (1.001-1.030); UROBILINOGEN 0.2 E.U./dl (0.0-1.0)
[2024-09-04 18:49] LABS: URINE AMPHETAMINES Negative (1000ng/ml); URINE BARBITURATES Negative (200ng/ml); URINE BENZODIAZEPINES Positive (200ng/ml); URINE CANNABINOIDS (THC) Negative (50ng/ml); URINE COCAINE Negative (300ng/ml); URINE METHADONE Negative (300ng/ml); URINE OPIATES Negative (300ng/ml); URINE PHENCYCLIDINE Negative (25ng/ml)
[2024-09-04 18:50] LABS: BACTERIA 1+; WBC 16-20 wbc/hpf (0-5)
[2024-09-04] MEDS ORDERED: Sulfamethoxazole/Trimethopri 1 TAB TAB PO ONE (19:05)
[2024-09-04 20:50] VITALS: BP 163/57
[2024-09-04] MEDS ORDERED: ALUMINUM H PO (20:52)
[2024-09-04] MEDS ORDERED: BAQSIMI3 MG NAS (20:56)
[2024-09-04] MEDS ORDERED: DIAZEPAM5 MG PO (21:00)
[2024-09-04] MEDS ORDERED: ELIQUIS2.5 M1 PO (21:10)
[2024-09-04] MEDS ORDERED: DULCOLAX STOOL100 MG PO (21:10)
[2024-09-04] MEDS ORDERED: GLUTOSE 1537.5 GM PO (21:13)
[2024-09-04] MEDS ORDERED: HYDROCODONE-AC1 EAC1 PO (21:16)
[2024-09-04] MEDS ORDERED: LANTUS SOL100 UNIT/1 SC (21:18)
[2024-09-04] MEDS ORDERED: RISPERIDONE M-0.5 MG PO (21:23)
[2024-09-04] MEDS ORDERED: SENNA8.6 MG PO (21:25)
[2024-09-04] MEDS ORDERED: RISPERIDONE SQ (21:29)
[2024-09-04] MEDS ORDERED: NOVOLOG FL100 UNIT/2 SC (21:34)
[2024-09-04] MEDS ORDERED: MG-AL HYDROXIDE/SIMETICONE 30 ML UDC PO PRN (21:35)
[2024-09-04] MEDS ORDERED: Magnesium Hydroxide 30 ML UDC PO PRN (21:35)
[2024-09-04] MEDS ORDERED: Menthol/Zinc Oxide 4 GM THIN T PRN (21:40)
[2024-09-04] MEDS ORDERED: hydrOXYzine hydrochloride 50 MG/ML VIAL IM PRN (21:45)
[2024-09-04] MEDS ORDERED: LORazepam 1 MG TAB PO PRN (21:45)
[2024-09-04] MEDS ORDERED: Ziprasidone Mesylate 20 MG VIAL IM PRN (21:45)
[2024-09-04 22:08] VITALS: BP 147/52
[2024-09-05] MEDS ORDERED: Sennosides A and B 8.6 MG TAB PO PRN (02:15)
[2024-09-05] MEDS ORDERED: DOCUSATE SODIUM 100 MG CAP PO PRN (02:15)
[2024-09-05] MEDS ORDERED: DEXTROSE 10 % IN WATER 250 ML IV PRN (02:15)
[2024-09-05] MEDS ORDERED: Levothyroxine Sodium 75 MCG TAB PO SCH (06:00)
[2024-09-05] MEDS ORDERED: OMEPRAZOLE 20 MG CAP PO SCH (06:00)
[2024-09-05] MEDS ORDERED: INSULIN LISPRO 1 UNIT/0.01 ML SQ SCH (07:30)
[2024-09-05 07:49] VITALS: BP 152/72
[2024-09-05] MEDS ORDERED: Ciprofloxacin Hydrochloride 500 MG TAB PO SCH (09:00)
[2024-09-05] MEDS ORDERED: DIVALPROEX (DR) 250 MG TAB PO SCH (09:00)
[2024-09-05] MEDS ORDERED: Insulin Glargine, Recombinan 300 UNITS/3 ML PEN SC SCH (09:00)
[2024-09-05] MEDS ORDERED: FERROUS SULFATE 325 MG TAB PO SCH (10:00)
[2024-09-05] MEDS ORDERED: APIXABAN 2.5 MG TABLET PO SCH (10:00)
[2024-09-05] MEDS ORDERED: RISPERIDONE 125 MG/0.35 ML SUSER.SYR SQ SCH (11:00)
[2024-09-05] MEDS ORDERED: INSULIN REGULAR, HUMAN 1 UNIT/0.01 ML SC SCH (16:30)
[2024-09-05 20:00] VITALS: BP 150/578
[2024-09-05] MEDS ORDERED: Paliperidone 3 MG TER PO SCH (21:00)
[2024-09-06 07:36] VITALS: BP 110/47
[2024-09-06 09:18] LABS: HEMATOCRIT 22.9 % (42.0-52.0); MEAN CELL VOLUME 73.2 fl (80.0-94.0); MEAN CORPUSCULAR HGB 21.1 pg (27.0-31.0); MEAN CORPUSCULAR HGB CONC 28.8 g/dl (33.0-37.0); MEAN PLATELET VOLUME 10.9 fl (9.6-12.3); PLATELET COUNT AUTOMATED 391 10*3/uL (130-400); RED BLOOD COUNT 3.13 10*6/uL (4.50-5.90); RED CELL DISTRI WIDTH 20.6 % (0-14.5); WHITE BLOOD COUNT 6.4 10*3/uL (4.8-10.8)
[2024-09-06 09:30] LABS: MANUAL DIFF REFLEX YES
[2024-09-06] MEDS ORDERED: Cholecalciferol 5,000 IU CAP (125 MCG) PO SCH (09:35)
[2024-09-06 09:37] LABS: BUN 12 mg/dl (9-23); CHLORIDE 105 mmol/L (98-107)
[2024-09-06 09:57] LABS: ATYPICAL LYMPHS 1 % (0-0); MICROCYTOSIS SLIGHT; PLATELET SUFFICIENCY NORMAL (NORMAL); TOTAL CELLS COUNTED 100 #CELLS
[2024-09-06 09:58] LABS: ROULEAUX SLIGHT; TARGET CELLS FEW
[2024-09-06 09:59] LABS: SCHISTOCYTES FEW
[2024-09-06] MEDS ORDERED: CIPROFLOXACIN500 M4 PO (12:56)
[2024-10-02] MEDS ORDERED: RISPERIDONE 125 MG/0.35 ML SUSER.SYR SQ SCH (09:00)
== END 2024-09-06 14:16 | disposition short-term general hospital (02) | DRG 885 ==
LOC: ED 14:58 → EDHOLD 19:15 → 3N 19:15
PROVIDERS: Emergency Medicine; ADMIT Psychiatry & Neurology Psychiatry; ATTEND Psychiatry & Neurology Psychiatry
PROC: GZHZZZZ Group Psychotherapy (ICD-10-PCS; principal; 2024-09-05)
PROC: GZ56ZZZ Individual Psychotherapy, Supportive (ICD-10-PCS; 2024-09-05)
DX: F25.9 Schizoaffective disorder, unspecified (principal); E11.65 Type 2 diabetes mellitus with hyperglycemia; N39.0 Urinary tract infection, site not specified; F22 Delusional disorders; E03.9 Hypothyroidism, unspecified; I10 Essential (primary) hypertension; K21.9 Gastro-esophageal reflux disease without esophagitis; E66.9 Obesity, unspecified; E11.51 Type 2 diabetes mellitus with diabetic peripheral angiopathy without gangrene; D50.9 Iron deficiency anemia, unspecified; E55.9 Vitamin D deficiency, unspecified; S81.802A Unspecified open wound, left lower leg, initial encounter; S81.801A Unspecified open wound, right lower leg, initial encounter; Z88.8 Allergy status to other drugs, medicaments and biological substances; Z91.09 Other allergy status, other than to drugs and biological substances; Z79.899 Other long term (current) drug therapy; Z79.01 Long term (current) use of anticoagulants; Z79.2 Long term (current) use of antibiotics; Z86.718 Personal history of other venous thrombosis and embolism; Z90.49 Acquired absence of other specified parts of digestive tract; Z88.0 Allergy status to penicillin; Z80.8 Family history of malignant neoplasm of other organs or systems; X58.XXXA Exposure to other specified factors, initial encounter; Y93.89 Activity, other specified; Y92.89 Other specified places as the place of occurrence of the external cause; Y99.8 Other external cause status; Z68.28 Body mass index [BMI] 28.0-28.9, adult

== ENCOUNTER 2024-09-09 12:21 | Inpatient (IN) | payer OTHER ==
[~2024-09-09] VITALS: Ht 167.6 cm; Wt 77.1 kg
[~2024-09-09 12:21] MED LIST changes: +ALUMINUM H PO; +BAQSIMI3 MG NAS; +CIPROFLOXACIN500 M4 PO; +DIAZEPAM5 MG PO; +DULCOLAX STOOL100 MG PO; +ELIQUIS2.5 M1 PO; +GLUTOSE 1537.5 GM PO; +HYDROCODONE-AC1 EAC1 PO; +LANTUS SOL100 UNIT/1 SC; +NOVOLOG FL100 UNIT/2 SC; +RISPERIDONE M-0.5 MG PO; +RISPERIDONE SQ; +SENNA8.6 MG PO
[2024-09-09] MEDS ORDERED: ACETAMINOPHEN 325 MG TAB PO PRN (17:25)
[2024-09-09] MEDS ORDERED: Magnesium Hydroxide 30 ML UDC PO PRN (17:25)
[2024-09-09] MEDS ORDERED: Menthol/Zinc Oxide 4 GM THIN T PRN (17:30)
[2024-09-09] MEDS ORDERED: Acetaminophen/Hydrocodone 5 MG/325 MG TABLET PO PRN (20:05)
[2024-09-09] MEDS ORDERED: DOCUSATE SODIUM 100 MG CAP PO PRN (20:05)
[2024-09-09] MEDS ORDERED: Sennosides A and B 8.6 MG TAB PO PRN (20:05)
[2024-09-09] MEDS ORDERED: GLUCAGON 3 MG NAS PRN (20:05)
[2024-09-09] MEDS ORDERED: DEXTROSE PO PRN (20:05)
[2024-09-09] MEDS ORDERED: CALCIUM (TUMS) 500MG PO PRN (20:05)
[2024-09-09] MEDS ORDERED: Benzocaine/Menthol 1 LOZ LOZENGE PO PRN (20:05)
[2024-09-09] MEDS ORDERED: ALUMINUM HYDROXIDE 320 MG/5 ML PO PRN (20:05)
[2024-09-09] MEDS ORDERED: IBUPROFEN 200 MG TAB PO PRN (20:10)
[2024-09-09] MEDS ORDERED: DEXTROSE 10 % IN WATER 250 ML IV PRN (21:55)
[2024-09-09] MEDS ORDERED: APIXABAN 2.5 MG TABLET PO SCH (22:00)
[2024-09-09] MEDS ORDERED: INSULIN LISPRO 1 UNIT/0.01 ML SQ SCH (22:00)
[2024-09-10] MEDS ORDERED: Levothyroxine Sodium 75 MCG TAB PO SCH (06:00)
[2024-09-10] MEDS ORDERED: OMEPRAZOLE 20 MG CAP PO SCH (06:00)
[2024-09-10 06:15] LABS: BASO # 0.1 10*3/uL (0.0-0.1); BASO % 1.2 % (0.0-1.0); EOS # 0.6 10*3/uL (0.0-0.4); EOS % 8.3 % (1.0-4.0); HEMATOCRIT 29.4 % (42.0-52.0); MEAN CELL VOLUME 76.8 fl (80.0-94.0); MEAN CORPUSCULAR HGB 22.5 pg (27.0-31.0); MEAN CORPUSCULAR HGB CONC 29.3 g/dl (33.0-37.0); MEAN PLATELET VOLUME 11.6 fl (9.6-12.3); MONO % 13.1 % (3.0-9.0); NEUT # 4.4 10*3/uL (2.3-7.9); NEUT % 60.3 % (47.0-73.0); PLATELET COUNT AUTOMATED 330 10*3/uL (130-400); RED BLOOD COUNT 3.83 10*6/uL (4.50-5.90); RED CELL DISTRI WIDTH 26.6 % (0-14.5); WHITE BLOOD COUNT 7.3 10*3/uL (4.8-10.8)
[2024-09-10 06:43] LABS: ALKALINE PHOSPHATASE 77 U/L (46-116); BUN 19 mg/dl (9-23); CHLORIDE 104 mmol/L (98-107); CHOLESTEROL 145 mg/dL (<200); LDL CHOLESTEROL 92 mg/dL (9-159); SGPT/ALT 10 U/L (5-49); TOTAL PROTEIN 6.5 gm/dL (6.0-8.0); TRIGLYCERIDES 56 mg/dl (<150)
[2024-09-10 08:00] VITALS: BP 134/57
[2024-09-10 08:15] LABS: VITAMIN D, 25-HYDROXY 25.1 ng/mL (30-100)
[2024-09-10] MEDS ORDERED: Insulin Glargine, Recombinan 300 UNITS/3 ML PEN SC SCH (09:00)
[2024-09-10] MEDS ORDERED: FERROUS SULFATE 325 MG TAB PO SCH (09:00)
[2024-09-10 20:00] VITALS: BP 118/61
[2024-09-11 08:00] VITALS: BP 145/64
[2024-09-11] MEDS ORDERED: Insulin Glargine, Recombinan 300 UNITS/3 ML PEN SC SCH (09:00)
[2024-09-11] MEDS ORDERED: DIVALPROEX (DR) 250 MG TAB PO SCH (13:00)
[2024-09-11 20:00] VITALS: BP 148/67
[2024-09-12 06:17] LABS: BASO # 0.1 10*3/uL (0.0-0.1); BASO % 1.5 % (0.0-1.0); EOS # 0.6 10*3/uL (0.0-0.4); EOS % 8.9 % (1.0-4.0); HEMATOCRIT 27.9 % (42.0-52.0); MEAN CELL VOLUME 78.4 fl (80.0-94.0); MEAN CORPUSCULAR HGB 22.8 pg (27.0-31.0); MEAN PLATELET VOLUME 11.6 fl (9.6-12.3); MONO # 0.8 10*3/uL (0.1-1.0); MONO % 12.6 % (3.0-9.0); NEUT # 3.7 10*3/uL (2.3-7.9); NEUT % 55.8 % (47.0-73.0); PLATELET COUNT AUTOMATED 304 10*3/uL (130-400); RED BLOOD COUNT 3.56 10*6/uL (4.50-5.90); RED CELL DISTRI WIDTH 27.9 % (0-14.5); WHITE BLOOD COUNT 6.6 10*3/uL (4.8-10.8)
[2024-09-12 08:06] VITALS: BP 129/56
[2024-09-12] MEDS ORDERED: Cholecalciferol 2,000 UNIT TABLET (50 MCG) PO SCH (09:00)
[2024-09-12 20:00] VITALS: BP 150/72
[2024-09-13] MEDS ORDERED: CYANOCOBALAMIN 1,000 MCG/ML VIAL IM SCH (08:00)
[2024-09-13 09:17] VITALS: BP 146/64
[2024-09-13 20:00] VITALS: BP 139/58
[2024-09-14 06:34] LABS: MEAN CORPUSCULAR HGB 22.9 pg (27.0-31.0); RED BLOOD COUNT 3.53 10*6/uL (4.50-5.90)
[2024-09-14 06:37] LABS: HEMATOCRIT 27.9 % (42.0-52.0); PLATELET COUNT AUTOMATED 277 10*3/uL (130-400); RED CELL DISTRI WIDTH 28.2 % (0-14.5); WHITE BLOOD COUNT 6.1 10*3/uL (4.8-10.8)
[2024-09-14 06:40] LABS: MANUAL DIFF REFLEX YES
[2024-09-14 08:08] LABS: BASOPHILS 2 % (0-1); TOTAL CELLS COUNTED 100 #CELLS
[2024-09-14 08:10] LABS: BURR CELLS FEW; OVALOCYTES FEW; PLATELET SUFFICIENCY NORMAL (NORMAL); POLYCHROMASIA SLIGHT; SCHISTOCYTES FEW; TARGET CELLS FEW
[2024-09-14 08:11] LABS: ACANTHOCYTES FEW; MICROCYTOSIS SLIGHT; ROULEAUX SLIGHT
[2024-09-14 08:31] VITALS: BP 129/56
[2024-09-14] MEDS ORDERED: DIVALPROEX SOD250 MG PO (10:02)
[2024-09-14] MEDS ORDERED: RISPERIDONE SQ (10:02)
[2024-09-14] MEDS ORDERED: VITAMIN D350 MCG PO (10:02)
[2024-09-14] MEDS ORDERED: B121000 MCG/1 IM (10:02)
[2024-09-14] MEDS ORDERED: REZVOGLAR100 UNIT/1 SC (10:54)
== END 2024-09-14 13:02 | DRG 885 ==
LOC: 3N 12:21
PROVIDERS: Internal Medicine; ADMIT Psychiatry & Neurology Psychiatry; ATTEND Psychiatry & Neurology Psychiatry
PROC: GZHZZZZ Group Psychotherapy (ICD-10-PCS; principal; 2024-09-10)
PROC: GZ56ZZZ Individual Psychotherapy, Supportive (ICD-10-PCS; 2024-09-13)
DX: F25.9 Schizoaffective disorder, unspecified (principal); E44.0 Moderate protein-calorie malnutrition; L97.819 Non-pressure chronic ulcer of other part of right lower leg with unspecified severity; L97.829 Non-pressure chronic ulcer of other part of left lower leg with unspecified severity; D64.9 Anemia, unspecified; I10 Essential (primary) hypertension; K21.9 Gastro-esophageal reflux disease without esophagitis; E03.9 Hypothyroidism, unspecified; E66.9 Obesity, unspecified; D50.9 Iron deficiency anemia, unspecified; E11.51 Type 2 diabetes mellitus with diabetic peripheral angiopathy without gangrene; Z80.8 Family history of malignant neoplasm of other organs or systems; Z88.0 Allergy status to penicillin; Z86.718 Personal history of other venous thrombosis and embolism; Z79.01 Long term (current) use of anticoagulants; Z88.8 Allergy status to other drugs, medicaments and biological substances; Z91.09 Other allergy status, other than to drugs and biological substances; Z79.899 Other long term (current) drug therapy; Z79.2 Long term (current) use of antibiotics; Z68.28 Body mass index [BMI] 28.0-28.9, adult